=== PATIENT | female | born 1985 | race Two or more races ===

== ENCOUNTER → 2016-07-23 | Outpatient (CLI) | payer SELFPAY | LOC: RAD 12:53 | PROVIDERS: ATTEND Nurse Practitioner Women's Health | DX: Z34.83 Encounter for supervision of other normal pregnancy, third trimester (principal) | CPT/HCPCS: 76805 ==

== ENCOUNTER 2016-07-24 15:11 | Outpatient (CLI) | payer SELFPAY ==
--- NOTE | 2016-07-24 16:00 | L&D Flow Sheet ---
LD Flowsheet Datetime Report Generated by CPN: 07/24/2016 16:00 Datetime: 07/24/2016 15:48 Vital Signs NBP Sys/[place]/Mean (mmHg): 116 (QS system process) : 70 (QS system process) : 88 (QS system process) Pulse: 76 (QS system process) Temperature (F): 98.1 (Brianna Pimentel RN) Temperature (C): 36.7 (QS system process) Temperature Route: Oral (Brianna Pimentel RN) Communication Communication Comments: C. Kline, CNM reviewed strip. Monitors removed per order for reactive NST (Brianna Margarito, RN) Datetime: 07/24/2016 15:30 Vital Signs NBP Sys/[place]/Mean (mmHg): 127 (QS system process) : 75 (QS system process) : 96 (QS system process) Pulse: 79 (QS system process) Datetime: 07/24/2016 15:27 Communication Communication Comments: orders received for patient to be removed from monitors once NST reactive (Brianna Pimentel, RN)
--- NOTE | 2016-07-24 18:06 | Non Stress Test Report ---
Non Stress Test Datetime Report Generated by CPN: 07/24/2016 18:06 DEMOGRAPHIC EGA NST: 40.3 INDICATION Indication for Study: Ordered by Provider MONITORING Monitor Explained: Monitor Explained; Test Explained; Patient Verbalized Understanding Time on Monitor: 07/24/2016 15:26 Time off Monitor: 07/24/2016 15:49 NST Duration: 23 NST INTERVENTIONS NST Interventions: None Physician Notified NST: Dr. Gomez BABY A: [id number] BABY A Movement : Present Contraction Frequency : none FHR Baseline : 135 Accelerations : 15X15 Decelerations : None Variability : Moderate 6-25bpm NST Review: Meets Criteria for Reactive NST NST Review and Verified By : Valeria Diaz RN NST Results: Reactive NST REPORT Report Trigger: Send Report
== END 2016-07-24 17:15 | disposition home or self-care (01) ==
LOC: LC 15:11
PROVIDERS: ATTEND Obstetrics & Gynecology
PROC: 4A1HXCZ Monitoring of Products of Conception, Cardiac Rate, External Approach (ICD-10-PCS; principal; 2016-07-24)
DX: O48.0 Post-term pregnancy (principal); Z3A.40 40 weeks gestation of pregnancy
CPT/HCPCS: 59025

== ENCOUNTER 2016-07-26 17:28 | Outpatient (CLI) | payer SELFPAY ==
--- NOTE | 2016-07-26 19:21 | Non Stress Test Report ---
Non Stress Test Datetime Report Generated by CPN: 07/26/2016 19:21 DEMOGRAPHIC EGA NST: 40.5 INDICATION Indication for Study: Ordered by Provider Indication for Study (NST) Other: sent from the health department VITAL SIGNS Temperature - NST: 98.0 Pulse - NST: 90 RESP - NST: 16 NBPSYS NST: 131 NBPDIA NST: 68 MONITORING Monitor Explained: Monitor Explained; Test Explained; Patient Verbalized Understanding Time on Monitor: 07/26/2016 17:40 Time off Monitor: 07/26/2016 18:15 NST Duration: 35 NST INTERVENTIONS NST Interventions: PO Hydration; Reposition Patient Physician Notified NST: Dr Margarito BABY A Movement : Present Contraction Frequency : x1 FHR Baseline : 130 Accelerations : 15X15 Decelerations : None Variability : Moderate 6-25bpm NST Review: Meets Criteria for Reactive NST NST Review and Verified By : Norm Carcamo RN NST Results: Reactive NST REPORT Report Trigger: Send Report
== END 2016-07-26 19:25 | disposition home or self-care (01) ==
LOC: LC 17:28
PROVIDERS: ATTEND Obstetrics & Gynecology
PROC: 4A1HXCZ Monitoring of Products of Conception, Cardiac Rate, External Approach (ICD-10-PCS; principal; 2016-07-26)
DX: O48.0 Post-term pregnancy (principal); Z3A.40 40 weeks gestation of pregnancy
CPT/HCPCS: 59025

== ENCOUNTER 2016-07-29 11:10 | Inpatient (IN) | payer SELFPAY ==
--- NOTE | 2016-07-29 12:00 | L&D Flow Sheet ---
LD Flowsheet Datetime Report Generated by CPN: 07/29/2016 12:00 Datetime: 07/29/2016 11:49 Communication Comments: IT at bedside to assess MARTTI; IT to bring new device to pt bedside. Pt stable. (Cindy Vitrano, RN) Datetime: 07/29/2016 11:47 I/O Interventions: Clear Liquids Given (Cindy Vitrano, RN) Datetime: 07/29/2016 11:44 Communication Comments: IT requested to repair MARTTI (Cindy Vitrano, RN) Datetime: 07/29/2016 11:38 Patient Position/Activity: Left Tilt; Semi-Fowlers (Cindy Vitrano, RN)
[2016-07-29] MEDS ORDERED: OXYTOCIN/NORMAL SALINE 1,000 ML IV PRN (12:31)
[2016-07-29] MEDS ORDERED: RINGERS SOLUTION,LACTATED 1,000 ML IV PRN (12:31)
[2016-07-29 12:34] LABS: APPEARANCE,URINE CLOUDY; BILIRUBIN,URINE NEGATIVE (NEGATIVE); GLUCOSE, URINE NEGATIVE (NEGATIVE); KETONES,URINE NEGATIVE (NEGATIVE); LEUKOCYTE ESTERASE,URINE LARGE (NEGATIVE); NITRITE,URINE NEGATIVE (NEGATIVE); PROTEIN,URINE 30 mg/dL (NEGATIVE); URINE SPECIFIC GRAVITY 1.013; UROBILINOGEN,URINE NEGATIVE mg/dL (<2.0)
[2016-07-29] MEDS ORDERED: PENICILLIN G-K 5 MILLION UNIT VIAL ONE ×3 (12:47→19:49)
[2016-07-29] MEDS ORDERED: OXYTOCIN/NORMAL SALINE 20 UNIT/1,000 ML RTUINJ ONE (12:47)
[2016-07-29 12:57] LABS: URINE BARBITURATES SCREEN NEGATIVE; URINE METHADONE SCREEN NEGATIVE; URINE OPIATES LOW NEGATIVE; URINE PHENCYCLIDINE SCREEN NEGATIVE
[2016-07-29 13:02] LABS: ABSOLUTE LYMPHOCYTES (AUTO) 1.4 10^3/uL (0.5-4.7); ABSOLUTE MONOCYTES (AUTO) 0.6 10^3/uL (0.1-1.4); ABSOLUTE NEUT (AUTO) 4.4 10^3/uL (1.7-8.2); BASOPHILS % (AUTO) 0.2 % (0-2); EOSINOPHILS % (AUTO) 0.2 % (0-6); HEMATOCRIT 36.8 % (36.0-47.0); HEMOGLOBIN 12.1 g/dL (12.0-15.5); HGB HCT DIFFERENCE -0.5; LYMPHOCYTES % (AUTO) 21.7 % (13-45); MEAN CORPUSCULAR HEMOGLOBIN 27.1 pg (27.0-33.4); MEAN CORPUSCULAR VOLUME 82 fl (80-97); MONOCYTES % (AUTO) 9.1 % (3-13); RED BLOOD COUNT 4.47 10^6/uL (3.72-5.28); RED CELL DISTRIBUTION WIDTH 17.3 % (11.5-14.0); SEGMENTED NEUTROPHILS % (AUTO) 68.8 % (42-78); WHITE BLOOD COUNT 6.4 10^3/uL (4.0-10.5)
--- NOTE | 2016-07-29 13:56 | L&D Progress Notes ---
PROGRESS NOTES Datetime Report Generated by CPN: 07/29/2016 13:56 PROGRESS NOTE Impression Other: IOL- stable Procedures: Sterile Vag Exam Plan: Continue Present Management; Induction Informed Consent Obtained: Vaginal Delivery; Risks, Benefits and Alternatives Discussed Vital Signs : Reviewed; Within Normal Limits Comment: S: Pt. comfortable, denies any pain/cramping at this time. Unsure of medication of choice for pain control (Epidural vs IV) O: VSS, Cat I tracing, cervix as stated, pit @6mu/min A: IOL at [id number], GBS positive-received first dose of antibiotics for prophylaxis P: Continue IOL- Will AROM 3-4hr post first dose of PCN. Reassess earlier prn VAGINAL EXAM Dilatation: 5 Dilatation: 4 Effacement: 80 Effacement: 70 Station: -2 Station: -2 Contractions: irregular Contractions: irregular MEMBRANES Membranes: Intact Membranes: Intact FETUS A Monitoring: External US Decelerations: None FHR Category: Category I Estimated Weight (gm): 4200 Presentation: Vertex SIGNATURE SIGNATURE: [id number] SIGNATURE: [id number] SIGNATURE: [id number] Assignment: Maureen Mckeon MD Signature: with User ID: Vania : with User ID: Vania
--- NOTE | 2016-07-29 14:01 | L&D Flow Sheet ---
LD Flowsheet Datetime Report Generated by CPN: 07/29/2016 14:00 Datetime: 07/29/2016 13:58 NBP Sys/[place]/Mean (mmHg): 126 (QS system process) : 82 (QS system process) : 99 (QS system process) Pulse: 81 (QS system process) LaborFlag: Labor (QS system process) Datetime: 07/29/2016 13:45 Monitor Mode: External (Cindy Vitrano, RN) Frequency (min): Irregular (Cindy Vitrano, RN) Quality: Mild (Cindy Vitrano, RN) Duration (sec): 50-90 (Cindy Vitrano, RN) Duration Criteria: Less than Two 120 Second Contractions (Cindy Vitrano, RN) Pattern: Normal: <= 5 Contractions in 10 Minutes (Cindy Vitrano, RN) Resting Tone (Palpate): Relaxed (Cindy Vitrano, RN) Monitor Mode: External US (Cindy Vitrano, RN) FHR Baseline Rate : 145 (Cindy Vitrano, RN) Variability: Moderate 6-25 bpm (Cindy Vitrano, RN) Accelerations: 15X15 (Cindy Vitrano, RN) Decelerations: None (Cindy Vitrano, RN) Pitocin (milliunit): Pitocin Increased to (milliunits) @ 8 (Cindy Vitrano, RN) Datetime: 07/29/2016 13:30 Monitor Mode: External (Cindy Vitrano, RN) Frequency (min): Occasional (Cindy Vitrano, RN) Quality: Mild (Cindy Vitrano, RN) Duration (sec): 50-80 (Cindy Vitrano, RN) Duration Criteria: Less than Two 120 Second Contractions (Cindy Vitrano, RN) Pattern: Normal: <= 5 Contractions in 10 Minutes (Cindy Vitrano, RN) Resting Tone (Palpate): Relaxed (Cindy Vitrano, RN) Monitor Mode: External US (Cindy Vitrano, RN) FHR Baseline Rate : 140 (Cindy Vitrano, RN) Variability: Moderate 6-25 bpm (Cindy Vitrano, RN) Accelerations: 15X15 (Cindy Vitrano, RN) Decelerations: None (Cindy Vitrano, RN) Pitocin (milliunit): Pitocin Increased to (milliunits) @ 6 (Cindy Vitrano, RN) Patient Care Comments: Pt denies needs (Cindy Vitrano, RN) Datetime: 07/29/2016 13:26 NBP Sys/[place]/Mean (mmHg): 122 (QS system process) : 79 (QS system process) : 96 (QS system process) Pulse: 73 (QS system process) Respirations: 16 (Cindy Vitrano, RN) LaborFlag: Labor (QS system process) Datetime: 07/29/2016 13:15 Monitor Mode: External (Cindy Vitrano, RN) Frequency (min): Occasional (Cindy Vitrano, RN) Quality: Mild (Cindy Vitrano, RN) Duration (sec): 70-100 (Cindy Vitrano, RN) Duration Criteria: Less than Two 120 Second Contractions (Cindy Vitrano, RN) Pattern: Normal: <= 5 Contractions in 10 Minutes (Cindy Vitrano, RN) Resting Tone (Palpate): Relaxed (Cindy Vitrano, RN) Monitor Mode: External US (Cindy Vitrano, RN) FHR Baseline Rate : 140 (Cindy Vitrano, RN) Variability: Moderate 6-25 bpm (Cindy Vitrano, RN) Accelerations: 15X15 (Cindy Vitrano, RN) Decelerations: None (Cindy Vitrano, RN) Pitocin (milliunit): Pitocin Increased to (milliunits) @ 4 (Cindy Vitrano, RN) IV/Blood Work: IV Infusing per Order (Cindy Vitrano, RN) Patient Care Comments: 125 mL/hour (Cindy Vitrano, RN) Datetime: 07/29/2016 13:14 Monitor Interventions for FHR: Ultrasound Adjusted (Cindy Vitrano, RN) Datetime: 07/29/2016 13:00 Monitor Mode: External (Cindy Vitrano, RN) Frequency (min): Occasional (Cindy Vitrano, RN) Quality: Mild (Cindy Vitrano, RN) Duration (sec): 70-80 (Cindy Vitrano, RN) Duration Criteria: Less than Two 120 Second Contractions (Cindy Vitrano, RN) Pattern: Normal: <= 5 Contractions in 10 Minutes (Cindy Vitrano, RN) Resting Tone (Palpate): Relaxed (Cindy Vitrano, RN) Monitor Mode: External US (Cindy Vitrano, RN) FHR Baseline Rate : 140 (Cindy Vitrano, RN) Variability: Moderate 6-25 bpm (Cindy Vitrano, RN) Accelerations: 15X15 (Cindy Vitrano, RN) Decelerations: None (Cindy Vitrano, RN) Patient Care Comments: Pt stable, denies needs (Cindy Vitrano, RN) Datetime: 07/29/2016 12:57 NBP Sys/[place]/Mean (mmHg): 118 (QS system process) : 76 (QS system process) : 94 (QS system process) Pulse: 86 (QS system process) Respirations: 16 (Cindy Vitrano, RN) LaborFlag: Labor (QS system process) Datetime: 07/29/2016 12:56 Medication Comments: PCN 5 million units IVPB (Cindy Vitrano, RN) Datetime: 07/29/2016 12:55 Pitocin (milliunit): Pitocin Started (milliunits) @ 2; Pitocin 20 Units in 1000ml NS (Cindy Vitrano, RN) Communication Comments: Medication reviewed with MARTRAIN and Keira Kline, CNM; pt denies questions (Cindy Vitrano, RN) Datetime: 07/29/2016 12:42 IV/Blood Work: IV Started; IV Infusing per Order (Cindy Vitrano, RN) Patient Care Comments: 18 G R hand site WNL (Cindy Vitrano, RN) Datetime: 07/29/2016 12:33 Communication Comments: CEulalio Kline, CNM at bedside to assess pt and review POC in eritrean (Cindy Vitrano, RN) Datetime: 07/29/2016 12:31 Patient Care Comments: Labs drawn (Cindy Vitrano, RN) Datetime: 07/29/2016 12:30 Monitor Mode: External (Cindy Vitrano, RN) Frequency (min): Occasional (Cindy Vitrano, RN) Quality: Mild (Cindy Vitrano, RN) Duration (sec): 70-100 (Cindy Vitrano, RN) Duration Criteria: Less than Two 120 Second Contractions (Cindy Vitrano, RN) Pattern: Normal: <= 5 Contractions in 10 Minutes (Cindy Vitrano, RN) Resting Tone (Palpate): Relaxed (Cindy Vitrano, RN) Monitor Mode: External US (Cindy Vitrano, RN) FHR Baseline Rate : 140 (Cindy Vitrano, RN) Variability: Moderate 6-25 bpm (Cindy Vitrano, RN) Accelerations: 15X15 (Cindy Vitrano, RN) Decelerations: None (Cindy Vitrano, RN) Datetime: 07/29/2016 12:26 NBP Sys/[place]/Mean (mmHg): 129 (QS system process) : 87 (QS system process) : 103 (QS system process) Pulse: 83 (QS system process) Respirations: 16 (Cindy Vitrano, RN) LaborFlag: Labor (QS system process) Datetime: 07/29/2016 12:22 Instructional Method: Verbal; Written; Patient Instructed; Family/Support Person Instructed; Verbalized Understanding (Cindy Vitrano, RN) Teaching Comments: MARTTI used to review POC and answer pt questions (Cindy Vitrano, RN) Datetime: 07/29/2016 12:20 Stage of : Labor (Cindy Vitrano, RN) Pain Scale: 0 (Cindy Vitrano, RN) Pain Presence: None/Denies (Cindy Vitrano, RN) Pain Type: N/A (Cindy Vitrano, RN) Membrane Status: Intact (Cindy Vitrano, RN) Vaginal Bleeding: None (Cindy Vitrano, RN) Level of Consciousness: Fully Conscious (Cindy Vitrano, RN) DTR's/Clonus: DTRs 2+; No Clonus (Cindy Vitrano, RN) Headache: Denies (Cindy Vitrano, RN) Breath Sounds, Left: Clear and Equal (Cindy Vitrano, RN) Breath Sounds, Right: Clear and Equal (Cindy Vitrano, RN) Nausea/Vomiting: Denies (Cindy Vitrano, RN) RUQ Epigastric Pain: Denies (Cindy Vitrano, RN) LaborFlag: Labor (QS system process) Datetime: 07/29/2016 12:12 Patient Care Comments: Consents reviewed and signed with WILD (Cindy Vitrano, RN) Datetime: 07/29/2016 12:06 Patient Care Comments: History and General Admission completed using MARTTI (Cindy Vitrano, RN) Datetime: 07/29/2016 12:00 Monitor Mode: External; Palpation (Cindy Vitrano, RN) Frequency (min): Occasional (Cindy Vitrano, RN) Quality: Mild (Cindy Vitrano, RN) Duration (sec): 70-100 (Cindy Vitrano, RN) Duration Criteria: Less than Two 120 Second Contractions (Cindy Vitrano, RN) Pattern: Normal: <= 5 Contractions in 10 Minutes (Cindy Vitrano, RN) Resting Tone (Palpate): Relaxed (Cindy Vitrano, RN) Monitor Mode: External US (Cindy Vitrano, RN) FHR Baseline Rate : 145 (Cindy Vitrano, RN) Variability: Moderate 6-25 bpm (Cindy Vitrano, RN) Accelerations: 15X15 (Cindy Vitrano, RN) Decelerations: None (Cindy Vitrano, RN) Communication Comments: IT at bedside repairing MARTTI (Cindy Diaz, RN)
[2016-07-29] MEDS ORDERED: BUPIVACAINE HCL 0.25 % INJ/PF (2.5 MG/1 ML) 30 ML VIAL ONE (15:14)
[2016-07-29] MEDS ORDERED: FENTANYL/BUPIVACAINE/NS/PF 200 MCG/100 ML RTUINJ EPI ONE (15:14)
[2016-07-29] MEDS ORDERED: EPHEDRINE SULFATE INJ 50 MG/1 ML AMPULE ONE (15:14)
--- NOTE | 2016-07-29 16:01 | L&D Flow Sheet ---
LD Flowsheet Datetime Report Generated by CPN: 07/29/2016 16:00 Datetime: 07/29/2016 15:58 Patient Care Comments: Denies needs, resting with FOB at bedside (Cindy MYRA Diaz) Datetime: 07/29/2016 15:57 Temperature (F): 98.5 (Cindy MYRA Diaz) Temperature (C): 36.9 (QS system process) Temperature Route: Oral (Cindy Diaz RN) Patient Care Comments: IV infusing per order, 125 mL/hour (Cindy Diaz RN) LaborFlag: Labor (QS system process) Datetime: 07/29/2016 15:56 NBP Sys/[place]/Mean (mmHg): 121 (QS system process) : 58 (QS system process) : 84 (QS system process) Pulse: 68 (QS system process) Pain Presence: None/Denies (Cindy Diaz RN) Pain Type: N/A (Cindy Diaz RN) LaborFlag: Labor (QS system process) Datetime: 07/29/2016 15:55 NBP Sys/[place]/Mean (mmHg): 124 (QS system process) : 60 (QS system process) : 87 (QS system process) Pulse: 80 (QS system process) Dilatation (cm): 6.5 (Cindy Diaz RN) Effacement (%): 90 (Cindy Diaz RN) Station: -1 (Cindy Diaz RN) Exam by: Valeria Diaz RN (Cindy Diaz RN) Membrane Status: Bulging (Cindy Diaz RN) LaborFlag: Labor (QS system process) Datetime: 07/29/2016 15:54 NBP Sys/[place]/Mean (mmHg): 128 (QS system process) : 58 (QS system process) : 83 (QS system process) Pulse: 77 (QS system process) LaborFlag: Labor (QS system process) Datetime: 07/29/2016 15:53 NBP Sys/[place]/Mean (mmHg): 124 (QS system process) : 58 (QS system process) : 85 (QS system process) Pulse: 83 (QS system process) I/O Interventions: Thomson Cath Inserted (Cindy Diaz RN) Patient Care Comments: MARTTI used (Cindy Diaz RN) LaborFlag: Labor (QS system process) Datetime: 07/29/2016 15:52 NBP Sys/[place]/Mean (mmHg): 123 (QS system process) : 62 (QS system process) : 86 (QS system process) Pulse: 73 (QS system process) LaborFlag: Labor (QS system process) Datetime: 07/29/2016 15:51 NBP Sys/[place]/Mean (mmHg): 122 (QS system process) : 67 (QS system process) : 88 (QS system process) Pulse: 80 (QS system process) LaborFlag: Labor (QS system process) Datetime: 07/29/2016 15:50 NBP Sys/[place]/Mean (mmHg): 124 (QS system process) : 70 (QS system process) : 90 (QS system process) Pulse: 79 (QS system process) LaborFlag: Labor (QS system process) Datetime: 07/29/2016 15:49 NBP Sys/[place]/Mean (mmHg): 114 (QS system process) : 55 (QS system process) : 77 (QS system process) Pulse: 84 (QS system process) LaborFlag: Labor (QS system process) Datetime: 07/29/2016 15:48 NBP Sys/[place]/Mean (mmHg): 120 (QS system process) : 60 (QS system process) : 83 (QS system process) Pulse: 81 (QS system process) LaborFlag: Labor (QS system process) Datetime: 07/29/2016 15:47 NBP Sys/[place]/Mean (mmHg): 119 (QS system process) : 65 (QS system process) : 82 (QS system process) Pulse: 78 (QS system process) LaborFlag: Labor (QS system process) Datetime: 07/29/2016 15:46 NBP Sys/[place]/Mean (mmHg): 118 (QS system process) : 58 (QS system process) : 82 (QS system process) Pulse: 78 (QS system process) LaborFlag: Labor (QS system process) Datetime: 07/29/2016 15:45 NBP Sys/[place]/Mean (mmHg): 116 (QS system process) : 62 (QS system process) : 83 (QS system process) Pulse: 86 (QS system process) Anesthesia Plans: Epidural (Cindy Vitrano, RN) Epidural Procedure: Loading Dose (Cindy Vitrano, RN) LaborFlag: Labor (QS system process) Datetime: 07/29/2016 15:44 NBP Sys/[place]/Mean (mmHg): 127 (QS system process) : 74 (QS system process) : 95 (QS system process) Pulse: 85 (QS system process) LaborFlag: Labor (QS system process) Datetime: 07/29/2016 15:43 Anesthesia Plans: Epidural (Cindy Vitrano, RN) Epidural Procedure: Cath Placed (Cindy Vitrano, RN) Epidural Procedure: Test Dose (Cindy Vitrano, RN) Datetime: 07/29/2016 15:42 Pulse: 98 (QS system process) SpO2 (%): 100 (QS system process) LaborFlag: Labor (QS system process) Datetime: 07/29/2016 15:37 Pulse: 91 (QS system process) SpO2 (%): 100 (QS system process) LaborFlag: Labor (QS system process) Datetime: 07/29/2016 15:36 Procedure Verify: Correct Patient Identity; Correct Side and Site are Marked; Accurate Procedure Consent Form; Agreement on Procedure to be Done; Correct Patient Position; Relevant Images and Results are Properly Labeled and Displayed; Addressed Need to Administer Antibiotics or Fluids for Irrigation; Safety Precautions Based on Patient History or Medication Use (Cindy Diaz RN) Anesthesia Plans: Epidural (Cindy Diaz RN) Anesthesia Comments: Dr. Peres at bedside for epidural (Cindy Diaz RN) Communication Comments: MARTTI used to explain procedure, used throughout procedure, all pt questions answered (Cindy Diaz RN) Datetime: 07/29/2016 15:32 Procedure Verify: Correct Patient Identity; Correct Side and Site are Marked; Accurate Procedure Consent Form; Agreement on Procedure to be Done; Correct Patient Position; Relevant Images and Results are Properly Labeled and Displayed; Addressed Need to Administer Antibiotics or Fluids for Irrigation; Safety Precautions Based on Patient History or Medication Use (Cindy Diaz RN) Anesthesia Plans: Epidural (Cindy Diaz RN) Anesthesia Comments: Dr. Peres called for epidural (Cindy Vitrano, RN) Datetime: 07/29/2016 15:25 Anesthesia Plans: Epidural (Cindy Vitrano, RN) Epidural Positioning: Sitting (Cindy Vitrano, RN) Datetime: 07/29/2016 15:15 IV/Blood Work: New IV Bag Hung; IV Bag Number @ 2 (Cindy Diaz RN) Patient Care Comments: LR bolusing for epidural (Cindy Diaz RN) Datetime: 07/29/2016 15:10 Pain Coping: Requesting Pain Medication or Epidural (Cindy Diaz RN) Pain Assessment Comments: Requesting epidural; orders from Keira Kline CNM for epidural PRN (Cindy Diaz RN) Procedure Verify: Correct Patient Identity; Correct Side and Site are Marked; Accurate Procedure Consent Form; Agreement on Procedure to be Done; Relevant Images and Results are Properly Labeled and Displayed; Addressed Need to Administer Antibiotics or Fluids for Irrigation; Safety Precautions Based on Patient History or Medication Use (Cindy Diaz RN) Anesthesia Plans: Epidural (Cindy Diaz RN) LaborFlag: Labor (QS system process) Datetime: 07/29/2016 15:00 Pitocin (milliunit): Pitocin Increased to (milliunits) @ 16 (Cindy Diaz RN) Datetime: 07/29/2016 14:57 NBP Sys/[place]/Mean (mmHg): 136 (QS system process) : 77 (QS system process) : 100 (QS system process) Pulse: 85 (QS system process) LaborFlag: Labor (QS system process) Datetime: 07/29/2016 14:45 Monitor Mode: External (Cindy Vitrano, RN) Frequency (min): 2-4 (Cindy Vitrano, RN) Quality: Mild (Cindy Vitrano, RN) Duration (sec): 50-90 (Cindy Vitrano, RN) Duration Criteria: Less than Two 120 Second Contractions (Cindy Vitrano, RN) Pattern: Normal: <= 5 Contractions in 10 Minutes (Cindy Vitrano, RN) Resting Tone (Palpate): Relaxed (Cindy Vitrano, RN) Monitor Mode: External US (Cindy Vitrano, RN) FHR Baseline Rate : 140 (Cindy Vitrano, RN) Variability: Moderate 6-25 bpm (Cindy Vitrano, RN) Accelerations: 15X15 (Cindy Vitrano, RN) Decelerations: None (Cindykhloe Diaz, RN) Pain Presence: Intermittent (Cindykhloe Diaz, RN) Pain Type: Cramping (Cindy Diaz RN) Pain Assessment Comments: Reports mild cramping, denies needs at this time (Cindy Diaz RN) Pitocin (milliunit): Pitocin Increased to (milliunits) @ 14 (Cindy Diaz, RN) Comfort Measures: Rocking Chair; Family Support (Cindy Diaz RN) LaborFlag: Labor (QS system process) Datetime: 07/29/2016 14:30 Monitor Mode: External (Cindy Diaz, RN) Frequency (min): 2-4 (Cindy Diaz, RN) Quality: Mild (Cindy Radhaano, RN) Duration (sec): 50-70 (Cindy Joe, RN) Duration Criteria: Less than Two 120 Second Contractions (Cindy Joe, RN) Pattern: Normal: <= 5 Contractions in 10 Minutes (Cindy Radhaano, RN) Resting Tone (Palpate): Relaxed (Cindy Joe, RN) Monitor Mode: External US (Cindy Joe, RN) FHR Baseline Rate : 135 (Cindy Vitrano, RN) Variability: Moderate 6-25 bpm (Cindy Vitrano, RN) Accelerations: None (Cindy Vitrano, RN) Decelerations: None (Cindy Vitrano, RN) Pitocin (milliunit): Pitocin Increased to (milliunits) @ 12 (Cindykhloe Diaz, RN) Datetime: 07/29/2016 14:26 NBP Sys/[place]/Mean (mmHg): 130 (QS system process) : 79 (QS system process) : 100 (QS system process) Pulse: 76 (QS system process) Respirations: 16 (Cindy Vitrano, RN) LaborFlag: Labor (QS system process) Datetime: 07/29/2016 14:20 Patient Care Comments: Up to rocking chair. Denies needs or complaints at this time. (Cindy Vitrano, RN) Datetime: 07/29/2016 14:15 Monitor Mode: External (Cindy Vitrano, RN) Frequency (min): 1.5-4 (Cindy Vitrano, RN) Quality: Mild (Cindy Vitrano, RN) Duration (sec): 50-90 (Cindy Vitrano, RN) Duration Criteria: Less than Two 120 Second Contractions (Cindy Vitrano, RN) Pattern: Normal: <= 5 Contractions in 10 Minutes (Cindy Vitrano, RN) Resting Tone (Palpate): Relaxed (Cindy Vitrano, RN) Monitor Mode: External US (Cindy Vitrano, RN) FHR Baseline Rate : 140 (Cindy Vitrano, RN) Variability: Moderate 6-25 bpm (Cindy Vitrano, RN) Accelerations: 15X15 (Cindy Vitrano, RN) Decelerations: None (Cindy Vitrano, RN) Pitocin (milliunit): Pitocin Increased to (milliunits) @ 10 (Cindy Vitrano, RN) Datetime: 07/29/2016 14:14 I/O Interventions: Up to BR (Cindy Vitrano, RN) Datetime: 07/29/2016 14:00 Monitor Mode: External; Palpation (Cindykhloe Diaz, RN) Frequency (min): 2-6 (Cindykhloe Diaz, RN) Quality: Mild (Cindy Joe, RN) Duration (sec): 50-80 (Cindy Joe, RN) Duration Criteria: Less than Two 120 Second Contractions (Cindy Joe, RN) Pattern: Normal: <= 5 Contractions in 10 Minutes (Cindy Joe, RN) Resting Tone (Palpate): Relaxed (Cindykhloe Diaz, RN) Monitor Mode: External US (Cindy Diaz, RN) FHR Baseline Rate : 140 (Cindy Joe, RN) Variability: Moderate 6-25 bpm (Cindy Joe, RN) Accelerations: 15X15 (Cindy Joe, RN) Decelerations: None (Cindy Joe, RN) Pitocin (milliunit): Pitocin Remains (milliunits) @ 8 (Cindy Diaz, RN)
[2016-07-29] MEDS ORDERED: LIDOCAINE 1% INJ-PF (10 MG/ML) 30 ML SDV ONE (16:25)
[2016-07-29] MEDS ORDERED: MISOPROSTOL 0.2 MG TABLET ONE (16:25)
--- NOTE | 2016-07-29 16:38 | L&D Progress Notes ---
PROGRESS NOTES Datetime Report Generated by CPN: 07/29/2016 16:38 PROGRESS NOTE Impression Other: IOL-stable Procedures- Other: rounds Plan: Continue Present Management Informed Consent Obtained: Vaginal Delivery; Risks, Benefits and Alternatives Discussed Vital Signs : Reviewed; Within Normal Limits Comment: S: pt. completely comfortable with epidural placement O: VSS, cervix as stated per RN exam, pit @ 18mu/min A: IOL-progressing SROM-clear fluid on inspection P: continue IOL, anticipate VAGINAL EXAM Dilatation: 7 Effacement: 90 Station: -1 Contractions: 1.5-3.5 MEMBRANES Membranes: Ruptured FETUS A Monitoring: External US Decelerations: Early FHR Category: Category I FETUS C SIGNATURE: [id number] Assignment: Maureen Mckeon MD Signature: with User ID: [email or web address] : with User ID: [email or web address]
--- NOTE | 2016-07-29 17:46 | L&D Progress Notes ---
PROGRESS NOTES Datetime Report Generated by CPN: 07/29/2016 17:46 PROGRESS NOTE Impression Other: IOL-stable, progressing well Procedures: Artificial ROM; Sterile Vag Exam Plan: Continue Present Management Informed Consent Obtained: Vaginal Delivery; Risks, Benefits and Alternatives Discussed Vital Signs : Reviewed; Within Normal Limits Comment: S: feeling intermittent perineal pressure O: VSS, pit @ 18mu/min, cervix as stated A: IOL stable, AROM-forebag ruptured large amount of white amniotic fluid present P: will labor down x30min in high fowlers, then start pushing VAGINAL EXAM Dilatation: 10 Effacement: 100 Station: 0 Contractions: 2-3 MEMBRANES Membranes: Ruptured Amniotic Fluid Color: white FETUS A FHR - Baseline: 130 Monitoring: External US Accelerations: 15X15 FETUS C SIGNATURE: [id number] Assignment: Maureen Mckeon MD Signature: with User ID: [email or web address] : with User ID: Vania
--- NOTE | 2016-07-29 18:01 | L&D Flow Sheet ---
LD Flowsheet Datetime Report Generated by CPN: 07/29/2016 18:00 Datetime: 07/29/2016 17:45 Monitor Mode: External; Palpation (Cindy Vitrano, RN) Frequency (min): 2-3 (Cindy Vitrano, RN) Quality: Moderate to Strong (Cindy Vitrano, RN) Duration (sec): 50-70 (Cindy Vitrano, RN) Duration Criteria: Less than Two 120 Second Contractions (Cindy Vitrano, RN) Pattern: Normal: <= 5 Contractions in 10 Minutes (Cindy Vitrano, RN) Resting Tone (Palpate): Relaxed (Cindy Vitrano, RN) Monitor Mode: External US (Cindy Vitrano, RN) FHR Baseline Rate : 125 (Cindy Vitrano, RN) Variability: Minimal - Undetectable to <=5 bpm (Cindy Vitrano, RN) Accelerations: 15X15 (Cindy Vitrano, RN) Decelerations: Early (Cindy Vitrano, RN) Pitocin (milliunit): Pitocin Remains (milliunits) @ 18 (Cindy Vitrano, RN) Datetime: 07/29/2016 17:43 NBP Sys/[place]/Mean (mmHg): 137 (QS system process) : 90 (QS system process) : 104 (QS system process) Pulse: 77 (QS system process) Respirations: 16 (Cindy Vitrano, RN) LaborFlag: Labor (QS system process) Datetime: 07/29/2016 17:37 Monitor Interventions for FHR: Ultrasound Adjusted (Cindy Vitrano, RN) Patient Position/Activity: Right Tilt; Tailors (Cindy Vitrano, RN) Stage 2 Comments: Laboring down (Cindy Vitrano, RN) Datetime: 07/29/2016 17:36 Dilatation (cm): 10.0 (Cindy Vitrano, RN) Effacement (%): 100 (Cindy Vitrano, RN) Station: 0 (Cindy Vitrano, RN) Exam by: Keira Kline CNM (Cindy Vitrano, RN) Membrane Status: Ruptured (Cindy Vitrano, RN) Membranes Rupture Method: Artificial (Cindy Vitrano, RN) Amniotic Fluid Color: Clear (Cindy Vitrano, RN) Amniotic Fluid Amount: Large (Cindy Vitrano, RN) Membrane Comments: Forebag ruptured (Cindy Vitrano, RN) Datetime: 07/29/2016 17:34 Provider Reviewed Strip: Yes (Cindy Vitrano, RN) Communication: RN at Bedside; RN Reviewed Strip; Provider at Bedside (Cindy Vitrano, RN) Communication Comments: Keira Kline CNM at bedside to assess pt (Cindy Vitrano, RN) Datetime: 07/29/2016 17:30 Monitor Mode: External (Cindy Vitrano, RN) Monitor Interventions for UA: [place] Adjusted (Cindy Vitrano, RN) Frequency (min): 1-2 (Cindy Vitrano, RN) Quality: Moderate to Strong (Cindy Vitrano, RN) Duration (sec): 50-80 (Cindy Vitrano, RN) Duration Criteria: Less than Two 120 Second Contractions (Cindy Vitrano, RN) Pattern: Normal: <= 5 Contractions in 10 Minutes (Cindy Vitrano, RN) Resting Tone (Palpate): Relaxed (Cindy Vitrano, RN) Monitor Mode: External US (Cindy Vitrano, RN) FHR Baseline Rate : 120 (Cindy Vitrano, RN) Variability: Absent - Undetectable (Cindy Vitrano, RN) Accelerations: 15X15 (Cindy Vitrano, RN) Decelerations: None (Cindy Vitrano, RN) Pitocin (milliunit): Pitocin Remains (milliunits) @ 18 (Cindy Vitrano, RN) Datetime: 07/29/2016 17:27 NBP Sys/[place]/Mean (mmHg): 118 (QS system process) : 65 (QS system process) : 86 (QS system process) Pulse: 73 (QS system process) Respirations: 16 (Cindy Vitrano, RN) LaborFlag: Labor (QS system process) Datetime: 07/29/2016 17:21 Monitor Interventions for UA: [place] Adjusted (Cindy Vitrano, RN) Patient Care Comments: Pt denies needs, resting comfortably with FOB at bedside (Cindy Vitrano, RN) Datetime: 07/29/2016 17:18 Monitor Interventions for UA: [place] Adjusted (Cindy Vitrano, RN) Monitor Interventions for FHR: Ultrasound Adjusted (Cindy Vitrano, RN) Patient Position/Activity: Right Lateral; Peanut Ball (Cindy Vitrano, RN) Datetime: 07/29/2016 17:15 Monitor Mode: External (Cindy Vitrano, RN) Frequency (min): 1-3 (Cindy Vitrano, RN) Quality: Moderate to Strong (Cindy Vitrano, RN) Duration (sec): 50-80 (Cindy Vitrano, RN) Duration Criteria: Less than Two 120 Second Contractions (Cindy Vitrano, RN) Pattern: Normal: <= 5 Contractions in 10 Minutes (Cindy Vitrano, RN) Resting Tone (Palpate): Relaxed (Cindy Vitrano, RN) Monitor Mode: External US (Cindy Vitrano, RN) FHR Baseline Rate : 130 (Cindy Vitrano, RN) Variability: Moderate 6-25 bpm (Cindy Vitrano, RN) Accelerations: 15X15 (Cindy Vitrano, RN) Decelerations: None (Cindy Vitrano, RN) Pitocin (milliunit): Pitocin Remains (milliunits) @ 18 (Cindy Vitrano, RN) Datetime: 07/29/2016 17:14 NBP Sys/[place]/Mean (mmHg): 124 (QS system process) : 76 (QS system process) : 95 (QS system process) Pulse: 73 (QS system process) Respirations: 16 (Cindy Vitrano, RN) LaborFlag: Labor (QS system process) Datetime: 07/29/2016 17:00 Monitor Mode: External; Palpation (Cindy Vitrano, RN) Frequency (min): 1-2 (Cindy Vitrano, RN) Quality: Moderate to Strong (Cindy Vitrano, RN) Duration (sec): 50-70 (Cindy Vitrano, RN) Duration Criteria: Less than Two 120 Second Contractions (Cindy Vitrano, RN) Pattern: Normal: <= 5 Contractions in 10 Minutes (Cindy Vitrano, RN) Resting Tone (Palpate): Relaxed (Cindy Vitrano, RN) Monitor Mode: External US (Cindy Vitrano, RN) FHR Baseline Rate : 130 (Cindy Vitrano, RN) Variability: Moderate 6-25 bpm (Cindy Vitrano, RN) Accelerations: 15X15 (Cindy Vitrano, RN) Decelerations: None (Cindy Vitrano, RN) Pitocin (milliunit): Pitocin Remains (milliunits) @ 18 (Cindy Vitrano, RN) Datetime: 07/29/2016 16:58 NBP Sys/[place]/Mean (mmHg): 123 (QS system process) : 67 (QS system process) : 90 (QS system process) Pulse: 63 (QS system process) Respirations: 16 (Cindy Vitrano, RN) LaborFlag: Labor (QS system process) Datetime: 07/29/2016 16:45 Monitor Mode: External (Cindy Vitrano, RN) Frequency (min): 1.5-2 (Cindy Vitrano, RN) Quality: Moderate to Strong (Cindy Vitrano, RN) Duration (sec): 50-70 (Cindy Vitrano, RN) Duration Criteria: Less than Two 120 Second Contractions (Cindy Vitrano, RN) Pattern: Normal: <= 5 Contractions in 10 Minutes (Cindy Vitrano, RN) Resting Tone (Palpate): Relaxed (Cindy Vitrano, RN) Monitor Mode: External US (Cindy Vitrano, RN) FHR Baseline Rate : 130 (Cindy Vitrano, RN) Variability: Minimal - Undetectable to <=5 bpm (Cindy Vitrano, RN) Accelerations: 15X15 (Cindy Vitrano, RN) Decelerations: None (Cindy Vitrano, RN) Pitocin (milliunit): Pitocin Remains (milliunits) @ 18 (Cindy Vitrano, RN) Datetime: 07/29/2016 16:42 NBP Sys/[place]/Mean (mmHg): 128 (QS system process) : 75 (QS system process) : 96 (QS system process) Pulse: 68 (QS system process) Respirations: 16 (Cindy Vitrano, RN) LaborFlag: Labor (QS system process) Datetime: 07/29/2016 16:36 Patient Position/Activity: Left Tilt; Tailors (Cindy Vitrano, RN) Datetime: 07/29/2016 16:30 Monitor Mode: External (Cindy Vitrano, RN) Frequency (min): 1-3 (Cindy Vitrano, RN) Quality: Moderate to Strong (Cindy Vitrano, RN) Duration (sec): 50-90 (Cindy Vitrano, RN) Duration Criteria: Less than Two 120 Second Contractions (Cindy Vitrano, RN) Pattern: Normal: <= 5 Contractions in 10 Minutes (Cindy Vitrano, RN) Resting Tone (Palpate): Relaxed (Cindy Vitrano, RN) Monitor Mode: External US (Cindy Vitrano, RN) FHR Baseline Rate : 135 (Cindy Vitrano, RN) Variability: Minimal - Undetectable to <=5 bpm (Cindy Vitrano, RN) Accelerations: 15X15 (Cindy Vitrano, RN) Decelerations: Early; Variable (Cindy Vitrano, RN) Pitocin (milliunit): Pitocin Remains (milliunits) @ 18 (Cindy Vitrano, RN) Datetime: 07/29/2016 16:28 Medication Comments: PCN 2.5 million units IVPB (Cindy Vitrano, RN) Datetime: 07/29/2016 16:27 NBP Sys/[place]/Mean (mmHg): 122 (QS system process) : 64 (QS system process) : 88 (QS system process) Pulse: 62 (QS system process) Respirations: 16 (Cindy Vitrano, RN) LaborFlag: Labor (QS system process) Datetime: 07/29/2016 16:15 Monitor Mode: External (Cindy Vitrano, RN) Frequency (min): 1.5-3.5 (Cindy Vitrano, RN) Quality: Moderate to Strong (Cindy Vitrano, RN) Duration (sec): 50-80 (Cindy Vitrano, RN) Duration Criteria: Less than Two 120 Second Contractions (Cindy Vitrano, RN) Pattern: Normal: <= 5 Contractions in 10 Minutes (Cindy Vitrano, RN) Resting Tone (Palpate): Relaxed (Cindy Vitrano, RN) Monitor Mode: External US (Cindy Vitrano, RN) FHR Baseline Rate : 140 (Cindy Vitrano, RN) Variability: Moderate 6-25 bpm (Cindy Vitrano, RN) Accelerations: 15X15 (Cindy Vitrano, RN) Decelerations: Early (Cindy Vitrano, RN) Pitocin (milliunit): Pitocin Increased to (milliunits) @ 18 (Cindy Vitrano, RN) Datetime: 07/29/2016 16:12 NBP Sys/[place]/Mean (mmHg): 126 (QS system process) : 69 (QS system process) : 92 (QS system process) Pulse: 70 (QS system process) Respirations: 16 (Cindy Vitrano, RN) Communication Comments: Keira Kline CNM at bedside, aware of SROM and SVE. Pt denies needs or questions at this time. (Cindy Vitrano, RN) LaborFlag: Labor (QS system process) Datetime: 07/29/2016 16:11 Hygiene: Underpad Changed (Cindy Vitrano, RN) Datetime: 07/29/2016 16:10 Membrane Status: Ruptured (Cindy Vitrano, RN) Membranes Rupture Method: Spontaneous (Cindy Vitrano, RN) Amniotic Fluid Color: Clear (Cindy Vitrano, RN) Amniotic Fluid Amount: Moderate (Cindy Vitrano, RN) Datetime: 07/29/2016 16:00 Monitor Mode: External; Palpation (Cindy Diaz, RN) Frequency (min): 2-4 (Cindykhloe Diaz, RN) Quality: Moderate to Strong (Cindy Joe, RN) Duration (sec): 50-80 (Cindy Joe, RN) Duration Criteria: Less than Two 120 Second Contractions (Cindy Joe, RN) Pattern: Normal: <= 5 Contractions in 10 Minutes (Cindy Joe, RN) Resting Tone (Palpate): Relaxed (Cindy Joe, RN) Monitor Mode: External US (Cindy Diaz, RN) FHR Baseline Rate : 145 (Cindy Joe, RN) Variability: Moderate 6-25 bpm (Cindy Joe, RN) Accelerations: 15X15 (Cindy Joe, RN) Decelerations: None (Cindy Joe, RN) Pitocin (milliunit): Pitocin Remains (milliunits) @ 16 (Cindykhloe Diaz, RN)
--- NOTE | 2016-07-29 20:01 | L&D Flow Sheet ---
LD Flowsheet Datetime Report Generated by CPN: 07/29/2016 20:00 Datetime: 07/29/2016 19:56 Medication Comments: PCN 2.5 million units IVPB (Cindy Vitrano, RN) IV/Blood Work: New IV Bag Hung; IV Bag Number @ 3 (Cindy Vitrano, RN) Pushing: Urge to Push (Cindy Vitrano, RN) Datetime: 07/29/2016 19:45 Monitor Mode: External (Cindy Vitrano, RN) Frequency (min): 2-3 (Cindy Vitrano, RN) Quality: Moderate to Strong (Cindy Vitrano, RN) Duration (sec): 50-80 (Cindy Vitrano, RN) Duration Criteria: Less than Two 120 Second Contractions (Cindy Vitrano, RN) Pattern: Normal: <= 5 Contractions in 10 Minutes (Cindy Vitrano, RN) Resting Tone (Palpate): Relaxed (Cindy Vitrano, RN) Monitor Mode: External US (Cindy Vitrano, RN) FHR Baseline Rate : 145 (Cindy Vitrano, RN) Variability: Minimal - Undetectable to <=5 bpm (Cindy Vitrano, RN) Accelerations: 15X15 (Cindy Vitrano, RN) Decelerations: None (Cindy Vitrano, RN) Pitocin (milliunit): Pitocin Remains (milliunits) @ 18 (Cindy Vitrano, RN) Datetime: 07/29/2016 19:40 NBP Sys/[place]/Mean (mmHg): 122 (QS system process) : 82 (QS system process) : 97 (QS system process) Pulse: 97 (QS system process) Respirations: 16 (Cindy Vitrano, RN) Monitor Interventions for FHR: Ultrasound Adjusted (Cindy Vitrano, RN) LaborFlag: Labor (QS system process) Datetime: 07/29/2016 19:30 Monitor Mode: External (Cindy Vitrano, RN) Frequency (min): 1.5-2 (Cindy Vitrano, RN) Quality: Moderate to Strong (Cindy Vitrano, RN) Duration (sec): 50-100 (Cindy Vitrano, RN) Duration Criteria: Less than Two 120 Second Contractions (Cindy Vitrano, RN) Pattern: Normal: <= 5 Contractions in 10 Minutes (Cindy Vitrano, RN) Resting Tone (Palpate): Relaxed (Cindy Vitrano, RN) Monitor Mode: External US (Cindy Vitrano, RN) FHR Baseline Rate : 145 (Cindy Vitrano, RN) Variability: Moderate 6-25 bpm (Cindy Vitrano, RN) Accelerations: 10X10 (Cindy Vitrano, RN) Decelerations: Early; Variable (Cindy Vitrano, RN) Pitocin (milliunit): Pitocin Remains (milliunits) @ 18 (Cindy Vitrano, RN) Datetime: 07/29/2016 19:15 Monitor Mode: External (Cindy Vitrano, RN) Frequency (min): 1.5-3 (Cindy Vitrano, RN) Quality: Moderate to Strong (Cindy Vitrano, RN) Duration (sec): 60-100 (Cindy Vitrano, RN) Duration Criteria: Less than Two 120 Second Contractions (Cindy Vitrano, RN) Pattern: Normal: <= 5 Contractions in 10 Minutes (Cindy Vitrano, RN) Resting Tone (Palpate): Relaxed (Cindy Vitrano, RN) Monitor Mode: External US (Cindy Vitrano, RN) FHR Baseline Rate : 140 (Cindy Vitrano, RN) Variability: Moderate 6-25 bpm (Cindy Vitrano, RN) Accelerations: 15X15 (Cindy Vitrano, RN) Decelerations: None (Cindy Vitrano, RN) Pitocin (milliunit): Pitocin Remains (milliunits) @ 18 (Cindy Vitrano, RN) Datetime: 07/29/2016 19:09 NBP Sys/[place]/Mean (mmHg): 129 (QS system process) : 80 (QS system process) : 98 (QS system process) Pulse: 97 (QS system process) Respirations: 16 (Cindy Vitrano, RN) LaborFlag: Labor (QS system process) Datetime: 07/29/2016 19:07 Patient Position/Activity: Right Tilt; Tailors (Cindy Vitrano, RN) Datetime: 07/29/2016 19:06 Communication Comments: Pt to labor down with epidural pump off until sensation to push increases. KAYLA EliseM at bedside reviewing POC with pt and all pt questions answered. (Cindy Vitrano, RN) Datetime: 07/29/2016 19:02 Pushing Progress: Ineffective Pushing (Annotations: No descent, ineffective pushing) (Cindy Vitrano, RN) Communication Comments: Dr. Mckeon at bedside to assess pt (Cindy Vitrano, RN) Datetime: 07/29/2016 19:00 Monitor Mode: External (Cindy Vitrano, RN) Frequency (min): 1.5-3 (Cindy Vitrano, RN) Quality: Moderate to Strong (Cindy Vitrano, RN) Duration (sec): 50-80 (Cindy Vitrano, RN) Duration Criteria: Less than Two 120 Second Contractions (Cindy Vitrano, RN) Pattern: Normal: <= 5 Contractions in 10 Minutes (Cindy Vitrano, RN) Resting Tone (Palpate): Relaxed (Cindy Vitrano, RN) Monitor Mode: External US (Cindy Vitrano, RN) FHR Baseline Rate : 130 (Cindy Vitrano, RN) Variability: Minimal - Undetectable to <=5 bpm (Cindy Vitrano, RN) Accelerations: None (Cindy Vitrano, RN) Decelerations: Early; Variable (Cindy Vitrano, RN) Pitocin (milliunit): Pitocin Remains (milliunits) @ 18 (Cindy Vitrano, RN) Datetime: 07/29/2016 18:45 Monitor Mode: External (Cindy Vitrano, RN) Frequency (min): 2-3 (Cindy Vitrano, RN) Quality: Moderate to Strong (Cinyd Vitrano, RN) Duration (sec): 50-90 (Cindy Vitrano, RN) Duration Criteria: Less than Two 120 Second Contractions (Cindy Vitrano, RN) Pattern: Normal: <= 5 Contractions in 10 Minutes (Cindy Vitrano, RN) Resting Tone (Palpate): Relaxed (Cindy Vitrano, RN) Monitor Mode: External US (Cindy Vitrano, RN) FHR Baseline Rate : 120 (Cindy Vitrano, RN) Variability: Moderate 6-25 bpm (Cindy Vitrano, RN) Accelerations: 15X15 (Cindy Vitrano, RN) Decelerations: None (Cindy Vitrano, RN) Pitocin (milliunit): Pitocin Remains (milliunits) @ 18 (Cindy Vitrano, RN) Datetime: 07/29/2016 18:43 Stage 2 Comments: Pushing with squat bar (Cindy Vitrano, RN) Datetime: 07/29/2016 18:41 Anesthesia Comments: Epidural pump off per Keira Kline CNM (Cindy Vitrano, RN) Datetime: 07/29/2016 18:36 Pushing Position: Pushing Left Side (Cindy Vitrano, RN) Datetime: 07/29/2016 18:30 Monitor Mode: External (Cindy Vitrano, RN) Frequency (min): 2-4 (Cindy Vitrano, RN) Quality: Moderate to Strong (Cindy Vitrano, RN) Duration (sec): 60-100 (Cindy Vitrano, RN) Duration Criteria: Less than Two 120 Second Contractions (Cindy Vitrano, RN) Pattern: Normal: <= 5 Contractions in 10 Minutes (Cindy Vitrano, RN) Resting Tone (Palpate): Relaxed (Cindy Vitrano, RN) Monitor Mode: External US (Cindy Vitrano, RN) Variability: Moderate 6-25 bpm (Cindy Vitrano, RN) Comments: Indeterminate baseline/accel/decel d/t maternal movement while pushing and pt habitus. RN at bedside continuously adjusting US. (Cindy Vitrano, RN) Pitocin (milliunit): Pitocin Remains (milliunits) @ 18 (Cindy Vitrano, RN) Datetime: 07/29/2016 18:24 Patient Position/Activity: Left Tilt (Cindy Vitrano, RN) Datetime: 07/29/2016 18:21 Stage 2 Comments: Tug of war (Cindy Vitrano, RN) Datetime: 07/29/2016 18:19 I/O Interventions: Thomson Discontinued (Cindy Vitrano, RN) Datetime: 07/29/2016 18:18 Pushing Progress: Descent with Pushing (Cindy Vitrano, RN) Datetime: 07/29/2016 18:15 Monitor Mode: External; Palpation (Cindy Vitrano, RN) Frequency (min): 2-4 (Cindy Vitrano, RN) Quality: Moderate to Strong (Cindy Vitrano, RN) Duration (sec): 50-90 (Cindy Vitrano, RN) Duration Criteria: Less than Two 120 Second Contractions (Cindy Vitrano, RN) Pattern: Normal: <= 5 Contractions in 10 Minutes (Cindy Vitrano, RN) Resting Tone (Palpate): Relaxed (Cindy Vitrano, RN) Monitor Mode: External US (Cindy Vitrano, RN) FHR Baseline Rate : 130 (Cindy Vitrano, RN) Variability: Moderate 6-25 bpm (Cindy Vitrano, RN) Accelerations: 15X15 (Cindy Vitrano, RN) Decelerations: None (Cindy Vitrano, RN) Pitocin (milliunit): Pitocin Remains (milliunits) @ 18 (Cindy Vitrano, RN) Datetime: 07/29/2016 18:12 Communication Comments: C. Kline, CNM to motor coach chauffeur pt on pushing (Cindy Vitrano, RN) Datetime: 07/29/2016 18:11 Temperature (F): 98.4 (Cindy Vitrano, RN) Temperature (C): 36.9 (QS system process) LaborFlag: Labor (QS system process) Datetime: 07/29/2016 18:09 Comments: RN remainst at bedside while pt pushes continuosly adjusting US and assessing FHTs (Cindy Vitrano, RN) Pushing: Coached on Pushing; Urge to Push (Cindy Vitrano, RN) Pushing Position: Pushing Lithotomy (Cindy Vitrano, RN) Datetime: 07/29/2016 18:00 Monitor Mode: External; Palpation (Cindy Diaz, MYRA) Frequency (min): 2-4 (Cindy Diaz, MYRA) Quality: Moderate to Strong (Cindy Diaz, RN) Duration (sec): 50-90 (Cindy Diaz, RN) Duration Criteria: Less than Two 120 Second Contractions (Cindy Diaz, RN) Pattern: Normal: <= 5 Contractions in 10 Minutes (Cindy Diaz, RN) Resting Tone (Palpate): Relaxed (Cindy Diaz, RN) Monitor Mode: External US (Cindy Diaz, RN) FHR Baseline Rate : 130 (Cindy Diaz, RN) Variability: Minimal - Undetectable to <=5 bpm (Cindy Diaz, RN) Accelerations: None (Cindy Diaz, RN) Decelerations: None (Cindy Diaz, RN) Pitocin (milliunit): Pitocin Remains (milliunits) @ 18 (Cindy Diaz, MYRA) Communication Comments: Pt to begin pushing per CNM; RN at bedside using MARTTI to explain POC and motor coach chauffeur pushing (Cindy Diaz RN)
[2016-07-29] MEDS ORDERED: FENTANYL CITRATE INJ/PF 100 MCG/2 ML AMPUL ONE (20:47)
[2016-07-29] MEDS ORDERED: OXYTOCIN 10 UNIT/ML VIAL ONE (20:56)
[2016-07-29] MEDS ORDERED: NALBUPHINE HCL INJ 10 MG/1 ML AMPULE ONE (20:57)
[2016-07-29] MEDS ORDERED: NALBUPHINE HCL INJ 10 MG/1 ML AMPULE INJ ONE (21:05)
[2016-07-29] MEDS ORDERED: FENTANYL CITRATE INJ/PF 100 MCG/2 ML AMPUL IV ONE (21:05)
[2016-07-29] MEDS ORDERED: CEFAZOLIN 2 GM/D5W RTU 50 ML IV SCH (21:15)
[2016-07-29] MEDS ORDERED: CEFAZOLIN 2 GM/D5W RTU 2 GM/50 ML RTUPB IV ONE ×2 (21:16→22:24)
[2016-07-29] MEDS ORDERED: OXYTOCIN 20 UNIT IV PRN (21:24)
[2016-07-29] MEDS ORDERED: DIBUCAINE 1% OINTMENT 28 GM TP PRN (21:24)
[2016-07-29] MEDS ORDERED: BENZOCAINE/MENTHOL AEROSOL SPRAY 56 ML TOP PRN (21:24)
[2016-07-29] MEDS ORDERED: ZOLPIDEM TARTRATE 5 MG TABLET PO PRN (21:24)
[2016-07-29] MEDS ORDERED: DIPH/PERTUSS(ACELL)/TETANUS VAC/PF 0.5 ML SYR (>=10YO) IM PRN (21:24)
[2016-07-29] MEDS ORDERED: ACETAMINOPHEN WITH CODEINE #3 TABLET PO PRN (21:24)
[2016-07-29] MEDS ORDERED: MEASLES,MUMPS&RUBELLA VACC/PF 0.5 ML VIAL SUBCUT PRN (21:24)
[2016-07-29] MEDS ORDERED: SODIUM CHLORIDE IV PRN (21:24)
[2016-07-29] MEDS ORDERED: MISOPROSTOL 0.2 MG TABLET PR PRN (21:24)
--- NOTE | 2016-07-29 22:00 | L&D Flow Sheet ---
LD Flowsheet Datetime Report Generated by CPN: 07/29/2016 22:00 Datetime: 07/29/2016 21:45 Stage of : Recovery (Cindy MYRA Diaz) NBP Sys/[place]/Mean (mmHg): 135 (QS system process) : 67 (QS system process) : 95 (QS system process) Pulse: 68 (QS system process) Respirations: 16 (Cindykhloe Diaz RN) Pain Scale: 0 (Cindy Joe, RN) Pain Presence: None/Denies (Cindy Vitrano, RN) Pain Type: N/A (Cindy Vitrano, RN) Datetime: 07/29/2016 21:30 Stage of : Recovery (Cindy Vitrano, RN) NBP Sys/[place]/Mean (mmHg): 134 (QS system process) : 64 (QS system process) : 92 (QS system process) Pulse: 76 (QS system process) Respirations: 16 (Cindy Vitrano, RN) Pain Scale: 0 (Cindy Vitrano, RN) Pain Presence: None/Denies (Cindy Vitrano, RN) Pain Type: N/A (Cindy Vitrano, RN) Datetime: 07/29/2016 21:15 Stage of : Recovery (Cindy Vitrano, RN) NBP Sys/[place]/Mean (mmHg): 139 (QS system process) : 65 (QS system process) : 94 (QS system process) Pulse: 84 (QS system process) Respirations: 16 (Cindy Vitrano, RN) Pain Scale: 0 (Cindy Vitrano, RN) Pain Presence: None/Denies (Cindy Vitrano, RN) Pain Type: N/A (Cindy Vitrano, RN) Datetime: 07/29/2016 21:00 NBP Sys/[place]/Mean (mmHg): 135 (QS system process) : 58 (QS system process) : 84 (QS system process) Pulse: 81 (QS system process) Respirations: 16 (Cindy Vitrano, RN) Datetime: 07/29/2016 20:57 Communication Comments: to [facility] with A. [place], RN (Corrie Lattibeaudeir, RN) Datetime: 07/29/2016 20:45 NBP Sys/[place]/Mean (mmHg): 109 (QS system process) : 73 (QS system process) : 86 (QS system process) Pulse: 82 (QS system process) Respirations: 15 (Cindy Vitrano, RN) Datetime: 07/29/2016 20:44 Stage of : Recovery (Cindy Vitrano, RN) Datetime: 07/29/2016 20:40 Monitor Mode: External; Palpation (Cindy Radhaano, RN) Frequency (min): 2-3 (Cindy Vitrano, RN) Quality: Moderate to Strong (Cindy Vitrano, RN) Duration (sec): 60-90 (Cindy Vitrano, RN) Duration Criteria: Less than Two 120 Second Contractions (Cindy Vitrano, RN) Pattern: Normal: <= 5 Contractions in 10 Minutes (Cindy Vitrano, RN) Resting Tone (Palpate): Relaxed (Cindy Vitrano, RN) Monitor Mode: External US (Cindy Vitrano, RN) Variability: Moderate 6-25 bpm (Cindy Vitrano, RN) Comments: Unable to establish baseline, RN at bedside adjusting US while pt pushes (Cindy Radhaano, RN) Pitocin (milliunit): Pitocin Remains (milliunits) @ 18 (Cindy Radhaano, RN) Stage 2 Comments: viable baby girl, see delivery summary (Cindy Vitrano, RN) Datetime: 07/29/2016 20:34 Pushing Progress: with Pushing (Cindy Vitrano, RN) Datetime: 07/29/2016 20:30 Monitor Mode: External (Cindy Vitrano, RN) Frequency (min): 2-3 (Cindy Vitrano, RN) Quality: Moderate to Strong (Cindy Vitrano, RN) Duration (sec): 50-80 (Cindy Vitrano, RN) Duration Criteria: Less than Two 120 Second Contractions (Cindy Vitrano, RN) Pattern: Normal: <= 5 Contractions in 10 Minutes (Cindy Vitrano, RN) Resting Tone (Palpate): Relaxed (Cindy Vitrano, RN) Monitor Mode: External US (Cindy Vitrano, RN) Variability: Moderate 6-25 bpm (Cindy Vitrano, RN) Comments: Unable to establish baseline, unable to assess accel/decel; RN at bedside adjusting US while pt pushes (Cindy Vitrano, RN) Pitocin (milliunit): Pitocin Remains (milliunits) @ 18 (Cindy Vitrano, RN) Datetime: 07/29/2016 20:26 Pushing Progress: Presenting Part Visible (Cindy Vitrano, RN) Datetime: 07/29/2016 20:22 Stage 2 Comments: Bed broken down for delivery (Cindy Vitrano, RN) Datetime: 07/29/2016 20:15 Monitor Mode: External (Cindy Vitrano, RN) Frequency (min): 1.5-3 (Cindy Vitrano, RN) Quality: Moderate to Strong (Cindy Vitrano, RN) Duration (sec): 60-80 (Cindy Vitrano, RN) Duration Criteria: Less than Two 120 Second Contractions (Cindy Vitrano, RN) Pattern: Normal: <= 5 Contractions in 10 Minutes (Cindy Vitrano, RN) Resting Tone (Palpate): Relaxed (Cindy Vitrano, RN) Monitor Mode: External US (Cindy Vitrano, RN) FHR Baseline Rate : 130 (Cindy Vitrano, RN) Variability: Minimal - Undetectable to <=5 bpm (Cindy Vitrano, RN) Accelerations: 15X15 (Cindy Vitrano, RN) Decelerations: Variable (Cindy Vitrano, RN) Pitocin (milliunit): Pitocin Remains (milliunits) @ 18 (Cindy Vitrano, RN) Datetime: 07/29/2016 20:12 Stage 2 Comments: Tug of war (Cindy Vitrano, RN) Datetime: 07/29/2016 20:06 Temperature (F): 98.7 (Cindy Vitrano, RN) Temperature (C): 37.1 (QS system process) Pushing Progress: Descent with Pushing (Cindy Vitrano, RN) Stage 2 Comments: Pushing effectively (Cindy Diaz RN) Communication Comments: Dr. Mckeon at bedside to assess pt (Cindy Diaz RN) LaborFlag: Labor (QS system process) Datetime: 07/29/2016 20:00 Monitor Mode: External; Palpation (Cindy Diaz RN) Frequency (min): 2-3 (Cindy Diaz RN) Quality: Moderate to Strong (Cindy Diaz RN) Duration (sec): 60-120 (Cindy Diaz, MYRA) Duration Criteria: Less than Two 120 Second Contractions (Cindy Diaz RN) Pattern: Normal: <= 5 Contractions in 10 Minutes (Cindy Diaz RN) Resting Tone (Palpate): Relaxed (Cindy Diaz, MYRA) Monitor Mode: External US (Cindy Diaz RN) FHR Baseline Rate : 145 (Cindy Diaz, MYRA) Variability: Moderate 6-25 bpm (Cindy Diaz, MYRA) Accelerations: 15X15 (Cindy Diaz, MYRA) Decelerations: None (Cindy Diaz, MYRA) Pitocin (milliunit): Pitocin Remains (milliunits) @ 18 (Cindy Diaz, MYRA)
--- NOTE | 2016-07-29 22:09 | Delivery Summary ---
Del Sum A-C Datetime Report Generated by CPN: 07/29/2016 22:09 ADMISSION DATA Chief Complaint: Scheduled Induction of Labor Indication for Induction: Post Dates Admission Impression: Induction of Labor Admit Provider Comments: 30yo at 41w1d into L_D for IOL for posdates. B pos, RI, GBS positive. Proven pelvis to 8lbs (per pt.) also complicated by Obesity otherwise uncomplicated. Pt. has received care at [facility] with one time consult at [facility] (records available, however no copies of labs attached to copies of care). Pt. had growth u/s on 07/23/16 and EFW 4051. Pt. is Arabic speaking only. Reviewed POC, pt. and asked questions and verbalized understanding. Will proceed with pitocin as planned and GBS protocol initiated. DELIVERY PERSONNEL Delivery Doctor:: Maureen Mckeon MD Labor and Delivery Nurse:: Cindy Diaz RNgrocery store bagger Nurse:: Corrie Escobedo RN Business Continuity Strategy Director/CRITICAL CARE PHYSICIAN: [facility] MATERNAL INFORMATION Delivery Anesthesia: Epidural Medications After Delivery: Pitocin Bolus-Please Comment Meds After Delivery Comment: Pitocin 40 units in 1000 ml NS bolusing after delivery of placenta Maternal Complications: None Provider Comments: VFI delivered in [place] presentation. No nuchal cord. Shoulders and body delivered without difficulty. Cord doubly clamped and cut and to maternal abdomen for skin to skin. Placenta delivered intact but retained trailing membranes delivered with crudee. FF at U after Pitocin and cytotec given. Ancef 2 grams given IV x 1 due to crudee. 20ml of 1% lidocaine given for repair of perineal laceration. Apgars 8/9, weight 11#3oz. Mother and baby stable upon provider leaving the room. Skin to skin done. Pt will try to breastfeed. LABOR SUMMARY EDC: 07/21/2016 00:00 No. Babies in Womb: 1 Attempted: No Labor Anesthesia: None LABOR INFORMATION Reason for Induction: Post Dates Onset of Labor: 07/29/2016 15:55 Complete Dilatation: 07/29/2016 17:36 Oxytocin: Induction Group B Beta Strep: positive Antibiotics # of Doses: 3 Antibiotics Time of Last Dose: 1955 Name of Antibiotic Given: PCN Steroids Given: None Reason Steroids Not Administered: Not Applicable MEMBRANES Membranes Rupture Method: Spontaneous Rupture of Membranes: 07/29/2016 16:10 Length of Rupture (hr): 4.50 Amniotic Fluid Color: Clear Amniotic Fluid Amount: Large Amniotic Fluid Odor: Normal STAGES OF LABOR Stage 1 hr: 1 Stage 1 min: 41 Stage 2 hr: 3 Stage 2 min: 4 Stage 3 hr: 0 Stage 3 min: 4 Total Time in Labor hr: 4 Total Time in Labor min: 49 VAGINAL DELIVERY Episiotomy: None Laceration Extension: Second Degree Laceration Type: Perineal Laceration Repair: Yes Laceration Repair Note: 2nd degree perineal laceration repaired in usual fashion. Good hemostasis Sponge Count Correct: N/A Sharps Count Correct: Yes CSECTION DELIVERY Primary Indication: N/A Secondary Indication: N/A CSection Incidence: N/A Labor: N/A Elective: N/A CSection Incision: N/A BABY A INFORMATION Delivery Date/Time: 07/29/2016 20:40 Method of Delivery: Vaginal Born in Route : No : N/A Forceps: N/A Vacuum Extraction: N/A Shoulder Dystocia : No PRESENTATION/POSITION BABY A Presentation: Cephalic Cephalic Presentation: Vertex Vertex Position: Left Occipital Anterior Breech Presentation: N/A PLACENTA INFORMATION BABY A Placenta Delivery Time : 07/29/2016 20:44 Placenta Method of Delivery: Spontaneous Placenta Status: Delivered SCORES BABY A Heart Rate 1 min: >100 bpm Resp Effort 1 min: Good Cry Reflex Irritability 1 min: Cough or Sneeze or Pulls Away Muscle Tone 1 min: Active Motion Color 1 min: Blue/Pale Resuscitation Effort 1 min: Tactile Stimulation SCORE 1 MIN: 8 Heart Rate 5 min: >100 bpm Resp Effort 5 min: Good Cry Reflex Irritability 5 min: Cough or Sneeze or Pulls Away Muscle Tone 5 min: Active Motion Color 5 min: Body [place], Extremities Blue Resuscitation Effort 5 min: Tactile Stimulation SCORE 5 MIN: 9 INFANT INFORMATION BABY A Gestational Age at Delivery: 41.1 Gestational Status: Late Term- 41- 41.6 Weeks Outcome : Liveborn Infant Condition : Stable Sex: Female IDENTIFICATION BABY A Infant Verification Date/Time: 07/29/2016 20:45 ID Band Number: [id number] Mother's Name Verified: Yes Infant RN Verifying : Brice Barton RN Additional Verifying Personnel: DEulalio Ruth, CRITICAL CARE PHYSICIAN WEIGHT/LENGTH BABY A Infant Birthweight (gm): 5085 Weight (lb): 11 Weight (oz): 3 Length (in): 20.00 Length (cm): 50.80 CORD INFORMATION BABY A No. Cord Vessels: 3 Nuchal Cord : N/A Cord Blood Taken: Yes-For Storage (Mom's Blood type +) Suction: Mouth; Nose; Pharynx ASSESSMENT BABY A Complications: Meconium Infant Complications- Other: Terminal meconium Physical Findings at Delivery: Within Normal Limits Respirations: Appears Normal Skin to Skin: Yes Skin to Skin Time (min): 5 [employer] Assistant Principal/ALS Called : No Infant Care By: Pauly Escobedo RN/Norm Luo RN Transferred To: Nursery BABY B INFORMATION : N/A SIGNATURES Signature: with User ID: [email or web address]
[2016-07-29] MEDS ORDERED: IBUPROFEN 800 MG TABLET ONE (22:16)
[2016-07-29] MEDS: IBUPROFEN 800 MG TABLET PO SCH (22:17)
--- NOTE | 2016-07-29 22:52 | Admission Physical ---
Datetime Report Generated by CPN: 07/29/2016 22:51 CURRENT ADMISSION Hx Assessment: The History has been Reviewed and is Current Chief Complaint: Scheduled Induction of Labor Indication for Induction: Post Dates Admit Plan: Admit to Unit; Initiate Labor Induction Protocol ALLERGIES Medication Allergies: No Medication Allergies: No Known Allergies (07/29/2016) Latex: No Latex Allergies Food Allergies: N/A Environmental Allergies: N/A OBSTETRICAL HISTORY EDC: 07/21/2016 00:00 : 2 Para: 1 Term: 1 : 0 SAB: 0 IAB: 0 Ectopic: 0 Livin Cesareans: 0 VBACs: 0 Multiple Births: 0 Gestational Diabetes: No Rh Sensitization: No Incompetent Cervix: No MIKE: No Infertility: No ART Treatment: No Uterine Anomaly: No IUGR: No Hx Previous C/S: No Macrosomia: No Hx Loss/Stillborn: No PIH: No Hx : No Placenta Previa/Abruption: No Depression/PP Depression: No PTL/PROM: No Post Hemorrhage: No SEE RECORDS Alcohol: No Marijuana : No Cocaine: No Other Illicit Drugs: No Cigarettes: Never Smoker. [id number] MEDICAL HISTORY Diabetes: No Blood Transfusion: No Pulmonary Disease (Asthma, TB): No Breast Disease: No Hypertension: No Non Linear Editor Surgery: No Heart Disease: No Hosp/Surgery: No Autoimmune Disorder: No Anesthetic Complications: No Kidney Disease: No Abnormal Pap Smear: No Neuro/Epilepsy: No Psychiatric Disorders: No Other Medical Diseases: No Hepatitis/Liver Disease: No Significant Family History: No Varicosities/Phlebitis: No Trauma/Violence : No Thyroid Dysfunction: No INFECTIOUS HISTORY Gonorrhea: No Genital Herpes: No Chlamydia: No Tuberculosis: No Syphilis: No Hepatitis: No HIV/AIDS Exposure: No Rash or Viral Illness: No HPV: No PHYSICAL EXAM General: Normal HEENT: Normal Neurologic: Normal Thyroid: Normal Heart: Normal Lungs: Normal Breast: Normal Back: Normal Abdomen: Normal Genitourinary Exam: Normal Extremities: Abnormal DTRs: Normal Pelvic Type: Adequate Physical Exam Comments: +2 pitting edema bilateral lower extremities. Vital Signs: Reviewed; Within Normal Limits VAGINAL EXAM Dilatation: 10 Effacement: 100 Station: 0 Contraction Comments: 2-3 MEMBRANES Membranes: Ruptured Amniotic Fluid Color: white FETUS A EGA: 41.1 Monitoring: External US FHR Category: Category I Estimated Weight (gm): 4200 Presentation: Vertex Admit Comment: 30yo at 41w1d into L_D for IOL for posdates. B pos, RI, GBS positive. Proven pelvis to 8lbs (per pt.) also complicated by Obesity otherwise uncomplicated. [place]. [place] [facility] time consult at [facility] (records available, however no copies of labs attached to copies of care). Pt. had growth u/s on 07/23/16 and EFW 4051. Pt. is Hungarian speaking only. Reviewed POC, pt. and asked questions and verbalized understanding. Will proceed with pitocin as planned and GBS protocol initiated. PLANS FOR LABOR AND DELIVERY Labor and Delivery: None Pain Management: Natural; Medications; Epidural Feeding Preference: Both Benefit of Breast Feed Discussed: Yes Circumcision: N/A INFORMED CONSENT Informed Consent Obtained: Vaginal Delivery; Risks, Benefits and Alternatives Discussed Assignment: Maureen Mckeon MD Signature: with User ID: Vania : with User ID: [email or web address]
[2016-07-29] MEDS: ACETAMINOPHEN WITH CODEINE #3 TABLET PO PRN (23:38)
[2016-07-30] MEDS: IBUPROFEN 800 MG TABLET PO SCH ×3 (06:04→21:25)
--- NOTE | 2016-07-30 07:01 | L&D Flow Sheet ---
LD Flowsheet Datetime Report Generated by CPN: 07/30/2016 07:00 Datetime: 07/29/2016 22:45 Stage of : Recovery (Cindy Vitrano, RN) Pain Scale: 0 (Cindy Vitrano, RN) Pain Presence: None/Denies (Cindy Vitrano, RN) Pain Type: N/A (Cindy Vitrano, RN) Datetime: 07/29/2016 22:35 Stage of : Recovery (Cindy Vitrano, RN) Datetime: 07/29/2016 22:30 Stage of : Recovery (Cindy Vitrano, RN) NBP Sys/[place]/Mean (mmHg): 130 (QS system process) : 68 (QS system process) : 94 (QS system process) Pulse: 73 (QS system process) Respirations: 16 (Cindy Vitrano, RN) Pain Scale: 0 (Cindy Vitrano, RN) Pain Presence: None/Denies (Cindy Vitrano, RN) Pain Type: N/A (Cindy Vitrano, RN) Datetime: 07/29/2016 22:15 Stage of : Recovery (Cindy Vitrano, RN) NBP Sys/[place]/Mean (mmHg): 130 (QS system process) : 67 (QS system process) : 93 (QS system process) Pulse: 69 (QS system process) Respirations: 16 (Cindy Vitrano, RN) Pain Scale: 0 (Cindy Vitrano, RN) Pain Presence: None/Denies (Cindy Vitrano, RN) Pain Type: N/A (Cindy Vitrano, RN) Datetime: 07/29/2016 22:00 Stage of : Recovery (Cindy Vitrano, RN) NBP Sys/[place]/Mean (mmHg): 136 (QS system process) : 76 (QS system process) : 101 (QS system process) Pulse: 81 (QS system process) Respirations: 16 (Cindy Vitrano, RN) Pain Scale: 0 (Cindy Vitrano, RN) Pain Presence: None/Denies (Cindy Vitrano, RN) Pain Type: N/A (Cindy Vitrano, RN) Datetime: 07/29/2016 21:45 Stage of : Recovery (Cindy Vitrano, RN) NBP Sys/[place]/Mean (mmHg): 135 (QS system process) : 67 (QS system process) : 95 (QS system process) Pulse: 68 (QS system process) Respirations: 16 (Cindy Vitrano, RN) Pain Scale: 0 (Cindy Vitrano, RN) Pain Presence: None/Denies (Cindy Vitrano, RN) Pain Type: N/A (Cindy Vitrano, RN) Datetime: 07/29/2016 21:30 Stage of : Recovery (Cindy Vitrano, RN) NBP Sys/[place]/Mean (mmHg): 134 (QS system process) : 64 (QS system process) : 92 (QS system process) Pulse: 76 (QS system process) Respirations: 16 (Cindy Vitrano, RN) Pain Scale: 0 (Cindy Vitrano, RN) Pain Presence: None/Denies (Cindy Vitrano, RN) Pain Type: N/A (Cindy Vitrano, RN) Datetime: 07/29/2016 21:15 Stage of : Recovery (Cindy Vitrano, RN) NBP Sys/[place]/Mean (mmHg): 139 (QS system process) : 65 (QS system process) : 94 (QS system process) Pulse: 84 (QS system process) Respirations: 16 (Cindy Vitrano, RN) Pain Scale: 0 (Cindy Vitrano, RN) Pain Presence: None/Denies (Cindy Vitrano, RN) Pain Type: N/A (Cindy Vitrano, RN) Datetime: 07/29/2016 21:00 NBP Sys/[place]/Mean (mmHg): 135 (QS system process) : 58 (QS system process) : 84 (QS system process) Pulse: 81 (QS system process) Respirations: 16 (Cindy Vitrano, RN) Datetime: 07/29/2016 20:57 Communication Comments: Infant to Nsy with A. Valerio, RN (Correi Lattibeaudeir, RN) Datetime: 07/29/2016 20:45 NBP Sys/[place]/Mean (mmHg): 109 (QS system process) : 73 (QS system process) : 86 (QS system process) Pulse: 82 (QS system process) Respirations: 15 (Cindy Vitrano, RN) Datetime: 07/29/2016 20:44 Stage of : Recovery (Cindy Vitrano, RN) Datetime: 07/29/2016 20:40 Monitor Mode: External; Palpation (Cindy Vitrano, RN) Frequency (min): 2-3 (Cindy Vitrano, RN) Quality: Moderate to Strong (Cindy Vitrano, RN) Duration (sec): 60-90 (Cindy Vitrano, RN) Duration Criteria: Less than Two 120 Second Contractions (Cindy Vitrano, RN) Pattern: Normal: <= 5 Contractions in 10 Minutes (Cindy Vitrano, RN) Resting Tone (Palpate): Relaxed (Cindy Vitrano, RN) Monitor Mode: External US (Cindy Vitrano, RN) Variability: Moderate 6-25 bpm (Cindy Vitrano, RN) Comments: Unable to establish baseline, RN at bedside adjusting US while pt pushes (Cindykhloe Diaz, RN) Pitocin (milliunit): Pitocin Remains (milliunits) @ 18 (Cindy Diaz, RN) Stage 2 Comments: viable baby girl, see delivery summary (Cindy Diaz, RN) Datetime: 07/29/2016 20:34 Pushing Progress: with Pushing (Cindy Joe, RN) Datetime: 07/29/2016 20:30 Monitor Mode: External (Cindy Joe, RN) Frequency (min): 2-3 (Cindy Joe, RN) Quality: Moderate to Strong (Cindy Joe, RN) Duration (sec): 50-80 (Cindy Vitrano, RN) Duration Criteria: Less than Two 120 Second Contractions (Cindy Joe, RN) Pattern: Normal: <= 5 Contractions in 10 Minutes (Cindy Joe, RN) Resting Tone (Palpate): Relaxed (Cindy Vitrano, RN) Monitor Mode: External US (Cindy Vitrano, RN) Variability: Moderate 6-25 bpm (Cindy Vitrano, RN) Comments: Unable to establish baseline, unable to assess accel/decel; RN at bedside adjusting US while pt pushes (Cindy Vitrano, RN) Pitocin (milliunit): Pitocin Remains (milliunits) @ 18 (Cindy Vitrano, RN) Datetime: 07/29/2016 20:26 Pushing Progress: Presenting Part Visible (Cindy Vitrano, RN) Datetime: 07/29/2016 20:22 Stage 2 Comments: Bed broken down for delivery (Cindy Vitrano, RN) Datetime: 07/29/2016 20:15 Monitor Mode: External (Cindy Vitrano, RN) Frequency (min): 1.5-3 (Cindy Vitrano, RN) Quality: Moderate to Strong (Cindy Vitrano, RN) Duration (sec): 60-80 (Cindy Vitrano, RN) Duration Criteria: Less than Two 120 Second Contractions (Cindy Vitrano, RN) Pattern: Normal: <= 5 Contractions in 10 Minutes (Cindy Vitrano, RN) Resting Tone (Palpate): Relaxed (Cindy Vitrano, RN) Monitor Mode: External US (Cindy Vitrano, RN) FHR Baseline Rate : 130 (Cindy Vitrano, RN) Variability: Minimal - Undetectable to <=5 bpm (Cindy Vitrano, RN) Accelerations: 15X15 (Cindy Vitrano, RN) Decelerations: Variable (Cindy Vitrano, RN) Pitocin (milliunit): Pitocin Remains (milliunits) @ 18 (Cindy Vitrano, RN) Datetime: 07/29/2016 20:12 Stage 2 Comments: Tug of war (Cindy Vitrano, RN) Datetime: 07/29/2016 20:06 Temperature (F): 98.7 (Cindy Vitrano, RN) Temperature (C): 37.1 (QS system process) Pushing Progress: Descent with Pushing (Cindy Joe, RN) Stage 2 Comments: Pushing effectively (Cindy Vitrano, RN) Communication Comments: Dr. Mckeon at bedside to assess pt (Cindykhloe Diaz, RN) LaborFlag: Labor (QS system process) Datetime: 07/29/2016 20:00 Monitor Mode: External; Palpation (Cindy Vitrano, RN) Frequency (min): 2-3 (Cindy Vitrano, RN) Quality: Moderate to Strong (Cindy Vitrano, RN) Duration (sec): 60-120 (Cindy Vitrano, RN) Duration Criteria: Less than Two 120 Second Contractions (Cindy Vitrano, RN) Pattern: Normal: <= 5 Contractions in 10 Minutes (Cindy Vitrano, RN) Resting Tone (Palpate): Relaxed (Cindy Vitrano, RN) Monitor Mode: External US (Cindy Vitrano, RN) FHR Baseline Rate : 145 (Cindy Vitrano, RN) Variability: Moderate 6-25 bpm (Cindy Vitrano, RN) Accelerations: 15X15 (Cindy Vitrano, RN) Decelerations: None (Cindy Vitrano, RN) Pitocin (milliunit): Pitocin Remains (milliunits) @ 18 (Cindy Vitrano, RN) Datetime: 07/29/2016 19:59 Comments: RN remains at bedside while pt pushes continously assessing FHTs (Cindy Vitrano, RN) Datetime: 07/29/2016 19:58 Communication Comments: Dr. Mckeon notified of urge to push, pt to begin pushing w contactions (Cindy Vitrano, RN) Datetime: 07/29/2016 19:56 Medication Comments: PCN 2.5 million units IVPB (Cindy Vitrano, RN) IV/Blood Work: New IV Bag Hung; IV Bag Number @ 3 (Cindy Vitrano, RN) Pushing: Urge to Push (Cindy Vitrano, RN) Datetime: 07/29/2016 19:45 Monitor Mode: External (Cindy Vitrano, RN) Frequency (min): 2-3 (Cindy Vitrano, RN) Quality: Moderate to Strong (Cindy Vitrano, RN) Duration (sec): 50-80 (Cindy Vitrano, RN) Duration Criteria: Less than Two 120 Second Contractions (Cindy Vitrano, RN) Pattern: Normal: <= 5 Contractions in 10 Minutes (Cindy Vitrano, RN) Resting Tone (Palpate): Relaxed (Cindy Vitrano, RN) Monitor Mode: External US (Cindy Vitrano, RN) FHR Baseline Rate : 145 (Cindy Vitrano, RN) Variability: Minimal - Undetectable to <=5 bpm (Cindy Vitrano, RN) Accelerations: 15X15 (Cindy Vitrano, RN) Decelerations: None (Cindy Vitrano, RN) Pitocin (milliunit): Pitocin Remains (milliunits) @ 18 (Cindy Vitrano, RN) Datetime: 07/29/2016 19:40 NBP Sys/[place]/Mean (mmHg): 122 (QS system process) : 82 (QS system process) : 97 (QS system process) Pulse: 97 (QS system process) Respirations: 16 (Cindy Vitrano, RN) Monitor Interventions for FHR: Ultrasound Adjusted (Cindy Vitrano, RN) LaborFlag: Labor (QS system process) Datetime: 07/29/2016 19:30 Monitor Mode: External (Cindy Vitrano, RN) Frequency (min): 1.5-2 (Cindy Vitrano, RN) Quality: Moderate to Strong (Cindy Vitrano, RN) Duration (sec): 50-100 (Cindy Vitrano, RN) Duration Criteria: Less than Two 120 Second Contractions (Cindy Vitrano, RN) Pattern: Normal: <= 5 Contractions in 10 Minutes (Cindy Vitrano, RN) Resting Tone (Palpate): Relaxed (Cindy Vitrano, RN) Monitor Mode: External US (Cindy Vitrano, RN) FHR Baseline Rate : 145 (Cindy Vitrano, RN) Variability: Moderate 6-25 bpm (Cindy Vitrano, RN) Accelerations: 10X10 (Cindy Vitrano, RN) Decelerations: Early; Variable (Cindy Vitrano, RN) Pitocin (milliunit): Pitocin Remains (milliunits) @ 18 (Cindy Vitrano, RN) Datetime: 07/29/2016 19:15 Monitor Mode: External (Cindy Vitrano, RN) Frequency (min): 1.5-3 (Cindy Vitrano, RN) Quality: Moderate to Strong (Cindy Vitrano, RN) Duration (sec): 60-100 (Cindy Vitrano, RN) Duration Criteria: Less than Two 120 Second Contractions (Cindy Vitrano, RN) Pattern: Normal: <= 5 Contractions in 10 Minutes (Cindy Vitrano, RN) Resting Tone (Palpate): Relaxed (Cindy Vitrano, RN) Monitor Mode: External US (Cindy Vitrano, RN) FHR Baseline Rate : 140 (Cindy Vitrano, RN) Variability: Moderate 6-25 bpm (Cindy Vitrano, RN) Accelerations: 15X15 (Cindy Vitrano, RN) Decelerations: None (Cindy Vitrano, RN) Pitocin (milliunit): Pitocin Remains (milliunits) @ 18 (Cindy Vitrano, RN) Datetime: 07/29/2016 19:09 NBP Sys/[place]/Mean (mmHg): 129 (QS system process) : 80 (QS system process) : 98 (QS system process) Pulse: 97 (QS system process) Respirations: 16 (Cindy Vitrano, RN) LaborFlag: Labor (QS system process) Datetime: 07/29/2016 19:07 Patient Position/Activity: Right Tilt; Tailors (Cindy Vitrano, RN) Datetime: 07/29/2016 19:06 Communication Comments: Pt to labor down with epidural pump off until sensation to push increases. CEulalio Kline CNM at bedside reviewing POC with pt and all pt questions answered. (Cindy Vitrano, RN) Datetime: 07/29/2016 19:02 Pushing Progress: Ineffective Pushing (Annotations: No descent, ineffective pushing) (Cindy Radhaano, RN) Communication Comments: Dr. Mckeon at bedside to assess pt (Cindy Vitrano, RN) Datetime: 07/29/2016 19:00 Monitor Mode: External (Cindy Vitrano, RN) Frequency (min): 1.5-3 (Cindy Vitrano, RN) Quality: Moderate to Strong (Cindy Vitrano, RN) Duration (sec): 50-80 (Cindy Vitrano, RN) Duration Criteria: Less than Two 120 Second Contractions (Cindy Vitrano, RN) Pattern: Normal: <= 5 Contractions in 10 Minutes (Cindy Vitrano, RN) Resting Tone (Palpate): Relaxed (Cindy Vitrano, RN) Monitor Mode: External US (Cindy Vitrano, RN) FHR Baseline Rate : 130 (Cindy Vitrano, RN) Variability: Minimal - Undetectable to <=5 bpm (Cindy Vitrano, RN) Accelerations: None (Cindy Vitrano, RN) Decelerations: Early; Variable (Cindy Vitrano, RN) Pitocin (milliunit): Pitocin Remains (milliunits) @ 18 (Cindy Vitrano, RN)
[2016-07-30 07:52] LABS: HEMATOCRIT 33.1 % (36.0-47.0); HGB HCT DIFFERENCE -0.1; MEAN CORPUSCULAR HEMOGLOBIN 27.5 pg (27.0-33.4); MEAN CORPUSCULAR HGB CONC 33.1 g/dL (32.0-36.0); MEAN CORPUSCULAR VOLUME 83 fl (80-97); RED BLOOD COUNT 3.99 10^6/uL (3.72-5.28); RED CELL DISTRIBUTION WIDTH 17.2 % (11.5-14.0); WHITE BLOOD COUNT 10.8 10^3/uL (4.0-10.5)
--- NOTE | 2016-07-30 09:47 | PDOC PROGRESS REPORT ---
Subjective-OB Subjective: Post Delivery Day: 30 year old. Denies any needs at this time Physical Exam (OB) Vital Signs: Temp Pulse Resp BP Pulse Ox 98.3 F 95 18 129/55 H 97 07/30/16 07:32 07/30/16 07:32 07/30/16 07:32 07/30/16 07:32 07/30/16 07:32 Intake & Output 07/29/16 07/30/16 07/31/16 06:59 06:59 06:59 Weight 111.95 kg - PIH/Pre-Eclampsia Clonus: Negative - Lochia Lochia Amount: Scant < 10 ml Lochia Color: Rubra/Red - Abdomen Description: Soft, Round Hernia Present: No Bowel Sounds: Normoactive Flatus Presence: Present Stool: No Fundal Description: Firm, Non-Midline Fundal Height: 1/u - 2/u Objective-Diagnostic Laboratory: 07/30/16 07:24 07/29/16 07/29/16 07/29/16 11:30 12:32 12:32 WBC 6.4 RBC 4.47 Hgb 12.1 Hct 36.8 MCV 82 MCH 27.1 MCHC 33.0 RDW 17.3 H Plt Count 179 Seg Neutrophils % 68.8 Lymphocytes % 21.7 Monocytes % 9.1 Eosinophils % 0.2 Basophils % 0.2 Absolute Neutrophils 4.4 Absolute Lymphocytes 1.4 Absolute Monocytes 0.6 Absolute Eosinophils 0.0 Absolute Basophils 0.0 Urine Color YELLOW Urine Appearance CLOUDY Urine pH 6.0 Ur Specific [place] 1.013 Urine Protein 30 H Urine Glucose (UA) NEGATIVE Urine Ketones NEGATIVE Urine Blood SMALL H Urine Nitrite NEGATIVE Ur Leukocyte Esterase LARGE H Blood Type B POSITIVE Antibody Screen NEGATIVE 07/30/16 07:24 WBC 10.8 H RBC 3.99 Hgb 11.0 L Hct 33.1 L MCV 83 MCH 27.5 MCHC 33.1 RDW 17.2 H Plt Count 152 Seg Neutrophils % Lymphocytes % Monocytes % Eosinophils % Basophils % Absolute Neutrophils Absolute Lymphocytes Absolute Monocytes Absolute Eosinophils Absolute Basophils Urine Color Urine Appearance Urine pH Ur Specific [place] Urine Protein Urine Glucose (UA) Urine Ketones Urine Blood Urine Nitrite Ur Leukocyte Esterase Blood Type Antibody Screen
[2016-07-30] MEDS: FERROUS SULFATE 325 MG TABLET PO SCH ×2 (10:52→17:54)
[2016-07-30] MEDS: SENNOSIDES/DOCUSATE 8.6-50 MG 1 EACH TABLET PO SCH (10:52)
[2016-07-30] MEDS: PRENATAL VITAMIN W-O CA NO5/FE FUMARATE/FA CAPSULE PO SCH (10:53)
[2016-07-30] MEDS: DOCUSATE SODIUM 100 MG CAPSULE PO SCH ×2 (10:53→17:54)
[2016-07-30] MEDS: ACETAMINOPHEN WITH CODEINE #3 TABLET PO PRN (15:35)
--- NOTE | 2016-07-30 18:01 | L&D General Admission ---
General Admit Datetime Report Generated by CPN: 07/30/2016 18:00 INFORMATION Patient Age: 30 (07/24/2016 15:12:QS system process) EDC: 07/21/2016 00:00 (07/24/2016 15:34:Brianna Pimentel RN) : 2 (07/24/2016 15:34:Cindy Diaz RN) Para: 1 (07/24/2016 15:34:Cindy Diaz RN) Term: 1 (07/24/2016 15:34:Cindy Diaz RN) : 0 (07/24/2016 15:34:Cindy Diaz RN) Spontaneous Abortions: 0 (07/24/2016 15:34:Cindy Diaz RN) Induced Abortions: 0 (07/24/2016 15:34:Cindy Diaz RN) Livin (07/24/2016 15:34:Cindy Diaz RN) Cesareans: 0 (07/24/2016 15:34:Cindy Diaz RN) VBACs: 0 (07/24/2016 15:34:Cindy Diaz RN) Ectopic: 0 (07/24/2016 15:34:Cindy Diaz RN) Multiple Births: 0 (07/24/2016 15:34:Cindy Diaz RN) Baby, Number in Womb: 1 (07/26/2016 18:20:Adrianna Mackay RNKirby) CARE Primary Presser All Around: [facility] [place] (07/24/2016 15:34:Cindy Diaz RN) Month of 1st Visit: 01/2016 (07/24/2016 15:34:Cindy Diaz RN) Adequate Care: No (07/24/2016 15:34:Cindy Diaz RN) Height (in): 64 (07/30/2016 11:04:QS system process) ALLERGIES Medication Allergy: No (07/24/2016 15:34:Cindy Diaz RN) Medication Allergies: No Known Allergies (07/29/2016) (07/29/2016 19:46:QS system process) Latex Allergy: No Latex Allergies (07/24/2016 15:34:Cindy Diaz RN) Food Allergies: N/A (07/24/2016 15:34:Cindy Diaz RN) Environmental Allergies: N/A (07/24/2016 15:34:Cindy Diaz RN) COMMUNICATION Primary Language: Namibian (07/24/2016 15:34:Brianna Pimentel RN) Medical Tx Preferred Language: Namibian (07/24/2016 15:34:BHARTI Escobar) Upper Sorbian Communication Ability: No understanding, MANAGER RESEARCH needed (07/24/2016 15:34:Brianna Pimentel RN) Communication Barrier(s): Language barrier (07/24/2016 15:34:Brianna Pimentel RN) DEMOGRAPHICS Address: [address] [place] [id number] (07/29/2016 12:46:QS system process) Zipcode: [address] (07/24/2016 15:12:QS system process) Home (07/24/2016 15:12:QS system process) SSN: [id number] (07/24/2016 15:12:QS system process) Next of Kin Name: ELIZABETH MONZON (07/24/2016 15:12:QS system process) Next of Kin (07/29/2016 12:46:QS system process) Next of Kin Relationship: OR (07/24/2016 15:12:QS system process) Date of : 1985 (07/24/2016 15:12:QS system process) Marital Status: Single (07/24/2016 15:12:QS system process) Sex: Female (07/24/2016 15:12:QS system process) Race: Other (07/24/2016 15:12:QS system process) Ethnicity: or (07/24/2016 15:12:QS system process) Pentecostal: None (07/24/2016 15:12:QS system process) DRUG AND ALCOHOL USE Alcohol: No (07/24/2016 15:34:Cindy Diaz RN) Cigarettes: Never Smoker. [id number] (07/24/2016 15:34:Cindy Diaz RN) Marijuana: No (07/24/2016 15:34:Cindy Diaz RN) Cocaine: No (07/24/2016 15:34:Cindy Diaz RN) Other Illicit Drugs: No (07/24/2016 15:34:Cindy Diaz RN) VACCINE HISTORY Influenza Vaccine: Yes (07/24/2016 15:34:Cindy Diaz RN) Pneumococcal Vaccine: No (07/24/2016 15:34:Cindy Diaz RN) Tetanus Vaccine: Yes (07/24/2016 15:34:Cindy Diaz RN) Tdap Vaccine: Yes (07/24/2016 15:34:Cindy Diaz RN) Hepatitis B Vaccine: Yes (07/24/2016 15:34:Cindy Diaz RN) [place] Off: [facility] (07/24/2016 15:34:Cindy Diaz RN) Feeding Preference: Both (07/24/2016 15:34:Cindy Diaz RN) Benefit of Breast Feed Discussed: Yes (07/24/2016 15:34:Cindy Diaz RN) Circumcision: N/A (07/24/2016 15:34:Cindy Diaz RN) Classes Attended: No (07/24/2016 15:34:Cindy Diaz RN) Tubal Ligation: No (07/24/2016 15:34:Cindy Diaz RN) Tubal Authorization Signed: N/A (07/24/2016 15:34:Cindy Diaz RN) Consent: N/A (07/24/2016 15:34:Cindy Diaz RN) Consent Signed: N/A (07/24/2016 15:34:Cindy Diaz RN) Pain Management Plans: Natural; Medications; Epidural (07/24/2016 15:34:Cindy Diaz RN) Plans for Labor and Delivery: None (07/24/2016 15:34:Cindy Diaz RN) Support Person: Elizabeth (07/24/2016 15:34:Cindy Diaz RN) Support Person Relationship: (07/24/2016 15:34:Cindy Diaz RN) Cultural/Spritual Practice: No (07/24/2016 15:34:Cindy Diaz RN) Spir/Cult Dietary Needs: No (07/24/2016 15:34:Cindy Diaz RN) LIVING SITUATION/DISCHARGE PLAN Living Arrangements: Apartment (07/24/2016 15:34:Cindy Diaz RN) Adequate Access to:: Electric; Heat; Refrigeration; Phone; Transportation (07/24/2016 15:34:Cindy Diaz RN) WIC Program: Yes (07/24/2016 15:34:Cindy Diaz RN) Discharge Bulb Inspector Person: Elizabeth (07/24/2016 15:34:Cindy Diaz RN) Person to Help after Discharge: Elizabeth (07/24/2016 15:34:Cindy Diaz RN) Currently Using Commun Resources: No (07/24/2016 15:34:Cindy Diaz RN) Outside Agency/Splunk Developer: No (07/24/2016 15:34:Cindy Diaz RN) Adoption Requested: No (07/24/2016 15:34:Cindy Diaz RN) Pt Contact w/infant Post : N/A (07/24/2016 15:34:Cindy Diaz RN) LABS Blood Type: B Positive (07/24/2016 15:34:Brianna Pimentel RN) Antibody Screen: negative (07/24/2016 15:34:Brianna Pimentel RN) Rho(G) this : Not Applicable (07/24/2016 15:34:Cindy Diaz RN) Hemoglobin: 11.0 L (07/30/2016 07:24:QS system process) Hematocrit: 33.1 L (07/30/2016 07:24:QS system process) MCV: 83 (07/30/2016 07:24:QS system process) Group Beta Strep: positive (07/24/2016 15:34:Brianna Pimentel RN) Chlamydia: Negative (07/24/2016 15:34:Brianna Pimentel RN) RPR/VDRL: Nonreactive (07/24/2016 15:34:Brianna Pimentel RN) HIV Exposure Test: Negative (07/24/2016 15:34:Cindy Diaz RN) HIV Results: non reactive (07/24/2016 15:34:Brianna Pimentel RN) Hepatitis B: Negative (07/24/2016 15:34:Brianna Pimentel RN) Rubella: Immune (07/24/2016 15:34:Brianna Pimentel RN) Varicella: Non Susceptible (07/24/2016 15:34:Brianna Pimentel RN) OB/PREVIOUS HISTORY History of Previous : No (07/24/2016 15:34:Cindy Diaz RN) History of Gestational Diabetes: No (07/24/2016 15:34:Cindy Diaz RN) History of PIH: No (07/24/2016 15:34:Cindy Diaz RN) History of Incompetent Cervix: No (07/24/2016 15:34:Cindy Diaz RN) History of Placenta Previa/Abrup: No (07/24/2016 15:34:Cindy Diaz RN) History of Macrosomia: No (07/24/2016 15:34:Cindy Diaz RN) History of IUGR: No (07/24/2016 15:34:Cindy Diaz RN) History of Hemorrhage: No (07/24/2016 15:34:Cindy Diaz RN) History of Loss/Stillborn: No (07/24/2016 15:34:Cindy Diaz RN) History of : No (07/24/2016 15:34:Cindy Diaz RN) History of D (Rh) Sensitization: No (07/24/2016 15:34:Cindy Diaz RN) History Recurrent Loss/Stillborn: No (07/24/2016 15:34:Cindy Diaz RN) History Depression/PP Depression: No (07/24/2016 15:34:Cindy Diaz RN) History of Uterine Anomaly/MIKE: No (07/24/2016 15:34:Cindy Diaz RN) History of Infertility: No (07/24/2016 15:34:Cindy Diaz RN) History of ART Treatment: No (07/24/2016 15:34:Cindy Diaz RN) History of MIKE: No (07/24/2016 15:34:Cindy Diaz RN) MEDICAL HISTORY Med Hx Diabetes: No (07/24/2016 15:34:Cindy Diaz RN) Med Hx Hypertension: No (07/24/2016 15:34:Cindy Diaz RN) Med Hx Heart Disease: No (07/24/2016 15:34:Cindy Diaz RN) Med Hx Autoimmune Disorder: No (07/24/2016 15:34:iCndy Diaz RN) Med Hx Kidney Disease/UTI: No (07/24/2016 15:34:Cindy Diaz RN) Med Hx Neurologic/Epilepsy: No (07/24/2016 15:34:Cindy Diaz RN) Med Hx Psychiatric Disorders: No (07/24/2016 15:34:Cindy Diaz RN) Med Hx Hepatitis/Liver Disease: No (07/24/2016 15:34:Cindy Diaz RN) Med Hx Varicosities/Phlebitis: No (07/24/2016 15:34:Cindy Diaz RN) Med Hx Thyroid Dysfunction: No (07/24/2016 15:34:Cindy Diaz RN) Med Hx Trauma/Violence: No (07/24/2016 15:34:Cindy Diaz RN) Med Hx Blood Transfusion: No (07/24/2016 15:34:Cindy Diaz RN) Med Hx Pulmonary (Asthma,TB): No (07/24/2016 15:34:Cindy Diaz RN) Med Hx Breast: No (07/24/2016 15:34:Cindy Diaz RN) Med Hx HORTICULTURAL SERVICES SUPERVISOR Surgery: No (07/24/2016 15:34:Cindy Diaz RN) Med Hx Hospitalization/Surgery: No (07/24/2016 15:34:Cindy Diaz RN) Med Hx Anesthetic Complications: No (07/24/2016 15:34:Cindy Diaz RN) Med Hx Abnormal Pap Smear: No (07/24/2016 15:34:Cindy Diaz RN) Other Medical Diseases: No (07/24/2016 15:34:Cindy Diaz RN) Med Hx Significant Family Hx: No (07/24/2016 15:34:Cindy Diaz RN) INFECTIOUS HISTORY Inf Hx Gonorrhea: No (07/24/2016 15:34:Cindy Diaz RN) Inf Hx Chlamydia: No (07/24/2016 15:34:Cindy Diaz RN) Inf Hx Syphilis: No (07/24/2016 15:34:Cindy Diaz RN) Inf Hx HIV/AIDS: No (07/24/2016 15:34:Cindy Diaz RN) Inf Hx Human Papilloma Virus: No (07/24/2016 15:34:Cindy Diaz RN) Inf Hx Pt/Partner Genital Herpes: No (07/24/2016 15:34:Cindy Diaz RN) Inf Hx Tuberculosis/Exposure: No (07/24/2016 15:34:Cindy Diaz RN) Inf Hx Hepatitis B,C: No (07/24/2016 15:34:Cindy Diaz RN) Inf Hx Rash or Viral Illness: No (07/24/2016 15:34:Cindy Diaz RN) GENETIC HISTORY Gen Hx Age >=35 at KRISTIN: No (07/24/2016 15:34:Cindy Diaz RN) Gen Hx Thalassemia: No (07/24/2016 15:34:Cindy Diaz RN) Gen Hx Congenital Heart Defect: No (07/24/2016 15:34:Cindy Diaz RN) Gen Hx Neural Tube Defect: No (07/24/2016 15:34:Cindy Diaz RN) Gen Hx Down's Syndrome: No (07/24/2016 15:34:Cindy Diaz RN) Gen Hx Brett-Sachs: No (07/24/2016 15:34:Cindy Diaz RN) Gen Hx Kath: No (07/24/2016 15:34:Cindy Diaz RN) Gen Hx Familial Dysautonomia: No (07/24/2016 15:34:Cindy Diaz RN) Gen Hx Sickle Cell Disease/Trait: No (07/24/2016 15:34:Cindy Diaz RN) Gen Hx Hemophilia/Blood Disorder: No (07/24/2016 15:34:Cindy Diaz RN) Gen Hx Muscular Dystrophy: No (07/24/2016 15:34:Cindy Diaz RN) Gen Hx Cystic Fibrosis: No (07/24/2016 15:34:Cindy Diaz RN) Gen Hx Huntingtons Chorea: No (07/24/2016 15:34:Cindy Diaz RN) Gen Hx Mental Retardation/Autism: No (07/24/2016 15:34:Cindy Diaz RN) Gen Hx Tested for Fragile X: No (07/24/2016 15:34:Cindy Diaz RN) Gen Hx Other Inher/Chromosomal: No (07/24/2016 15:34:Cindy Diaz RN) Gen Hx Maternal Metabolic DO: No (07/24/2016 15:34:Cindy Diaz RN) Gen Hx Pt Father or FOB Defect: No (07/24/2016 15:34:Cindy Diaz RN) Gen Hx Other Genetic History: No (07/24/2016 15:34:Cindy Diaz RN) Gen Hx Drugs/Meds since LMP: No (07/24/2016 15:34:Cindy Diaz RN)
--- NOTE | 2016-07-30 18:01 | L&D Current Admission ---
Current Admit Datetime Report Generated by CPN: 07/30/2016 18:00 ADMISSION INFORMATION Current Admit Date/Time: 07/29/2016 11:28 (07/29/2016 12:20:Cindy Diaz RN) Reason for Admission: Induction of Labor (07/29/2016 12:20:Cindy Diaz RN) Chief Complaint: Scheduled Induction of Labor (07/29/2016 12:20:Cindy Diaz RN) Medications During : Vitamin (07/29/2016 12:20:Cindy Diaz RN) EGA per Dates: 41.1 (07/29/2016 12:20:QS system process) Method of Arrival: Ambulatory (07/29/2016 12:20:Cindy Diaz RN) Admitted From: Home (07/29/2016 12:20:Cindy Diaz RN) Reason for Induction: Postterm (07/29/2016 12:20:Cindy Diaz RN) Reason for Induction- Other: Post dates (07/29/2016 11:40:Christy Sandoval RN) Records Available: Yes (07/29/2016 12:20:Cindy Diaz RN) General Admission Information: Reviewed; Confirmed (07/29/2016 12:20:Cindy Diaz RN) General Admission Reviewed By: Valeria Diaz RN (07/29/2016 12:20:Cindy Diaz RN) BELONGINGS/ADVANCED DIRECTIVES Valuables/Personal Effects: Cell Phone (07/29/2016 12:20:Cindy Diaz RN) Other Belongings: See belongings consent (07/29/2016 12:20:Cindy Diaz RN) Disposition of Belongings: Kept with Patient (07/29/2016 12:20:Cindy Diaz RN) Advance Direct for Healthcare: No, and Wants No Information (07/29/2016 12:20:Cindy Diaz RN) Durable Power of Area Operations Director: No (07/29/2016 12:20:Cindy Diaz RN) Living Will: No (07/29/2016 12:20:Cindy Diaz RN) Organ Donor: No (07/29/2016 12:20:Cindy Diaz RN) Pt Rights Information Given: Yes (07/29/2016 12:20:Cindy Diaz RN) Pt Understands Pt Rights: Yes (07/29/2016 12:20:Cindy Diaz RN) LEARNING ASSESSMENT Knowledge Level: Understands L_D Process; Understands Care Activities; Had Pre-Hospital Education; Understands Diagnosis (07/29/2016 12:20:Cindy Diaz RN) Barriers to Learning: Communication Barrier (07/29/2016 12:20:Cindy Diaz RN) Learning Readiness: Motivated (07/29/2016 12:20:Cindy Diaz RN) Learns Best By: 1 to 1 Instruction (07/29/2016 12:20:Cindy Diaz RN) Learning Needs: Labor and Delivery Process; Pain Management; Symptoms to Report; Treatment Plan; Medication; Diagnosis; Nutrition; Equipment; Infant Care; Community Resources (07/29/2016 12:20:Cindy Diaz RN) DOMESTIC VIOLANCE SCREENING Dom Viol Threatened/Hurt: No (07/29/2016 12:20:Cindy Diaz RN) Hx of Abuse/Neglect past 2yrs: No (07/29/2016 12:20:Cindy Diaz RN) Feel Unsafe Going Home: No (07/29/2016 12:20:Cindy Diaz RN) Addt'l Observ Indicating Abuse: No (07/29/2016 12:20:Cindy Diaz RN) Reason Unable to Complete Screen: N/A, Screen Completed (07/29/2016 12:20:Cindy Diaz RN) Considered Personal Harm/Suicide: No (07/29/2016 12:20:Cindy Diaz RN) NUTRITIONAL/FUNCTIONAL SCREENING Problem with Appetite >5 Days: No (07/29/2016 12:20:Cindy Diaz RN) Chew/Swallow Difficulties: No (07/29/2016 12:20:Cindy Diaz RN) Inappropriate Wt Gain/Loss: No (07/29/2016 12:20:Cindy Diaz RN) Presence Skin Breakdown/Ulcer: No (07/29/2016 12:20:Cindy Diaz RN) Special Diet: No (07/29/2016 12:20:Cindy Diaz RN) Pt Requests Shirt Cleaner Visit: No (07/29/2016 12:20:Cindy Diaz RN) Hx of Any of the Following?: N/A (07/29/2016 12:20:Cindy Diaz RN) New Diagnosis of: N/A (07/29/2016 12:20:Cindy Diaz RN) Requires Assist w/Ambulation: No (07/29/2016 12:20:Cindy Diaz RN) Uses Assist Device to Ambulate: No (07/29/2016 12:20:Cindy Diaz RN) Pt Requires Help w/ADL's: No (07/29/2016 12:20:Cindy Diaz RN)
[2016-07-31] MEDS: IBUPROFEN 800 MG TABLET PO SCH ×2 (05:51→13:54)
--- NOTE | 2016-07-31 06:01 | L&D Current Admission ---
Current Admit Datetime Report Generated by CPN: 07/31/2016 06:00 ADMISSION INFORMATION Current Admit Date/Time: 07/29/2016 11:28 (07/29/2016 12:20:Cindy Diaz RN) Reason for Admission: Induction of Labor (07/29/2016 12:20:Cindy Diaz RN) Chief Complaint: Scheduled Induction of Labor (07/29/2016 12:20:Cindy Diaz RN) Medications During : Vitamin (07/29/2016 12:20:Cnidy Diaz RN) EGA per Dates: 41.1 (07/29/2016 12:20:QS system process) Method of Arrival: Ambulatory (07/29/2016 12:20:Cindy Diaz RN) Admitted From: Home (07/29/2016 12:20:Cindy Diaz RN) Reason for Induction: Postterm (07/29/2016 12:20:Cinyd Diaz RN) Reason for Induction- Other: Post dates (07/29/2016 11:40:Christy Sandoval RN) Records Available: Yes (07/29/2016 12:20:Cindy Diaz RN) General Admission Information: Reviewed; Confirmed (07/29/2016 12:20:Cindy Diaz RN) General Admission Reviewed By: Valeria Diaz RN (07/29/2016 12:20:Cindy Diaz RN) BELONGINGS/ADVANCED DIRECTIVES Valuables/Personal Effects: Cell Phone (07/29/2016 12:20:Cindy Diaz RN) Other Belongings: See belongings consent (07/29/2016 12:20:Cindy Diaz RN) Disposition of Belongings: Kept with Patient (07/29/2016 12:20:Cindy Diaz RN) Advance Direct for Healthcare: No, and Wants No Information (07/29/2016 12:20:Cindy Diaz RN) Durable Power of Store Sales Consultant: No (07/29/2016 12:20:Cindy Diaz RN) Living Will: No (07/29/2016 12:20:Cindy Diaz RN) Organ Donor: No (07/29/2016 12:20:Cindy Diaz RN) Pt Rights Information Given: Yes (07/29/2016 12:20:Cindy Diaz RN) Pt Understands Pt Rights: Yes (07/29/2016 12:20:Cindy Diaz RN) LEARNING ASSESSMENT Knowledge Level: Understands L_D Process; Understands Care Activities; Had Pre-Hospital Education; Understands Diagnosis (07/29/2016 12:20:Cindy Diaz RN) Barriers to Learning: Communication Barrier (07/29/2016 12:20:Cindy Diaz RN) Learning Readiness: Motivated (07/29/2016 12:20:Cindy Diaz RN) Learns Best By: 1 to 1 Instruction (07/29/2016 12:20:Cindy Diaz RN) Learning Needs: Labor and Delivery Process; Pain Management; Symptoms to Report; Treatment Plan; Medication; Diagnosis; Nutrition; Equipment; Infant Care; Community Resources (07/29/2016 12:20:Cindy Diaz RN) DOMESTIC VIOLANCE SCREENING Dom Viol Threatened/Hurt: No (07/29/2016 12:20:Cindy Diaz RN) Hx of Abuse/Neglect past 2yrs: No (07/29/2016 12:20:Cindy Diaz RN) Feel Unsafe Going Home: No (07/29/2016 12:20:Cindy Diaz RN) Addt'l Observ Indicating Abuse: No (07/29/2016 12:20:Cindy Diaz RN) Reason Unable to Complete Screen: N/A, Screen Completed (07/29/2016 12:20:Cindy Diaz RN) Considered Personal Harm/Suicide: No (07/29/2016 12:20:Cindy Diaz RN) NUTRITIONAL/FUNCTIONAL SCREENING Problem with Appetite >5 Days: No (07/29/2016 12:20:Cindy Diaz RN) Chew/Swallow Difficulties: No (07/29/2016 12:20:Cindy Diaz RN) Inappropriate Wt Gain/Loss: No (07/29/2016 12:20:Cindy Diaz RN) Presence Skin Breakdown/Ulcer: No (07/29/2016 12:20:Cindy Diaz RN) Special Diet: No (07/29/2016 12:20:Cindy Diaz RN) Pt Requests Strickler Attendant Visit: No (07/29/2016 12:20:Cindy Diaz RN) Hx of Any of the Following?: N/A (07/29/2016 12:20:Cindy Diaz RN) New Diagnosis of: N/A (07/29/2016 12:20:Cindy Diaz RN) Requires Assist w/Ambulation: No (07/29/2016 12:20:Cindy Diaz RN) Uses Assist Device to Ambulate: No (07/29/2016 12:20:Cindy Diaz RN) Pt Requires Help w/ADL's: No (07/29/2016 12:20:Cindy Diaz RN)
--- NOTE | 2016-07-31 06:01 | L&D General Admission ---
General Admit Datetime Report Generated by CPN: 07/31/2016 06:00 INFORMATION Patient Age: 30 (07/24/2016 15:12:QS system process) EDC: 07/21/2016 00:00 (07/24/2016 15:34:Brianna Pimentel RN) : 2 (07/24/2016 15:34:Cindy Diaz RN) Para: 1 (07/24/2016 15:34:Cindy Diaz RN) Term: 1 (07/24/2016 15:34:Cindy Diaz RN) : 0 (07/24/2016 15:34:Cindy Diaz RN) Spontaneous Abortions: 0 (07/24/2016 15:34:Cindy Diaz RN) Induced Abortions: 0 (07/24/2016 15:34:Cindy Diaz RN) Livin (07/24/2016 15:34:Cindy Diaz RN) Cesareans: 0 (07/24/2016 15:34:Cindy Diaz RN) VBACs: 0 (07/24/2016 15:34:Cindy Diaz RN) Ectopic: 0 (07/24/2016 15:34:Cindy Diaz RN) Multiple Births: 0 (07/24/2016 15:34:Cindy Diaz RN) Baby, Number in Womb: 1 (07/26/2016 18:20:Adrianna Mackay RNKirby) CARE Primary Thread Singer: [facility] (07/24/2016 15:34:Cindy Diaz RN) Month of 1st Visit: 01/2016 (07/24/2016 15:34:Cindy Diaz RN) Adequate Care: No (07/24/2016 15:34:Cindy Diaz RN) Height (in): 64 (07/30/2016 11:04:QS system process) ALLERGIES Medication Allergy: No (07/24/2016 15:34:Cindy Diaz RN) Medication Allergies: No Known Allergies (07/29/2016) (07/29/2016 19:46:QS system process) Latex Allergy: No Latex Allergies (07/24/2016 15:34:Cindy Diaz RN) Food Allergies: N/A (07/24/2016 15:34:Cindy Diaz RN) Environmental Allergies: N/A (07/24/2016 15:34:Cindy Diaz RN) COMMUNICATION Primary Language: Yemeni (07/24/2016 15:34:Brianna Pimentel RN) Medical Tx Preferred Language: Yemeni (07/24/2016 15:34:BHARTI Escobar) Syriac Communication Ability: No understanding, PRELIMINARY SCHOOL PSYCHOLOGIST needed (07/24/2016 15:34:Brianna Pimentel RN) Communication Barrier(s): Language barrier (07/24/2016 15:34:Brianna Pimentel RN) DEMOGRAPHICS Address: [address] [place] [id number] (07/29/2016 12:46:QS system process) Zipcode: [address] (07/24/2016 15:12:QS system process) Home (07/24/2016 15:12:QS system process) SSN: [id number] (07/24/2016 15:12:QS system process) Next of Kin Name: ELIZABETH MONZON (07/24/2016 15:12:QS system process) Next of Kin (07/29/2016 12:46:QS system process) Next of Kin Relationship: OR (07/24/2016 15:12:QS system process) Date of : 1985 (07/24/2016 15:12:QS system process) Marital Status: Single (07/24/2016 15:12:QS system process) Sex: Female (07/24/2016 15:12:QS system process) Race: Other (07/24/2016 15:12:QS system process) Ethnicity: or (07/24/2016 15:12:QS system process) Methodist: None (07/24/2016 15:12:QS system process) DRUG AND ALCOHOL USE Alcohol: No (07/24/2016 15:34:Cindy Diaz RN) Cigarettes: Never Smoker. [id number] (07/24/2016 15:34:Cindy Diaz RN) Marijuana: No (07/24/2016 15:34:Cindy Diaz RN) Cocaine: No (07/24/2016 15:34:Cindy Diaz RN) Other Illicit Drugs: No (07/24/2016 15:34:Cindy Diaz RN) VACCINE HISTORY Influenza Vaccine: Yes (07/24/2016 15:34:Cindy Diaz RN) Pneumococcal Vaccine: No (07/24/2016 15:34:Cindy Diaz RN) Tetanus Vaccine: Yes (07/24/2016 15:34:Cindy Diaz RN) Tdap Vaccine: Yes (07/24/2016 15:34:Cindy Diaz RN) Hepatitis B Vaccine: Yes (07/24/2016 15:34:Cindy Diaz RN) Steel Pourer: [facility] (07/24/2016 15:34:Cindy Diaz RN) Feeding Preference: Both (07/24/2016 15:34:Cindy Diaz RN) Benefit of Breast Feed Discussed: Yes (07/24/2016 15:34:Cindy Diaz RN) Circumcision: N/A (07/24/2016 15:34:Cindy Diaz RN) Classes Attended: No (07/24/2016 15:34:Cindy Diaz RN) Tubal Ligation: No (07/24/2016 15:34:Cindy Diaz RN) Tubal Authorization Signed: N/A (07/24/2016 15:34:Cindy Diaz RN) Consent: N/A (07/24/2016 15:34:Cindy Diaz RN) Consent Signed: N/A (07/24/2016 15:34:Cindy Diaz RN) Pain Management Plans: Natural; Medications; Epidural (07/24/2016 15:34:Cindy Diaz RN) Plans for Labor and Delivery: None (07/24/2016 15:34:Cindy Diaz RN) Support Person: Elizabeth (07/24/2016 15:34:Cinyd Diaz RN) Support Person Relationship: (07/24/2016 15:34:Cindy Diaz RN) Cultural/Spritual Practice: No (07/24/2016 15:34:Cindy Diaz RN) Spir/Cult Dietary Needs: No (07/24/2016 15:34:Cindy Diaz RN) LIVING SITUATION/DISCHARGE PLAN Living Arrangements: Apartment (07/24/2016 15:34:Cindy Diaz RN) Adequate Access to:: Electric; Heat; Refrigeration; Phone; Transportation (07/24/2016 15:34:Cindy Diaz RN) WIC Program: Yes (07/24/2016 15:34:Cindy Diaz RN) Discharge Documentation Writer Person: Elizabeth (07/24/2016 15:34:Cindy Diaz RN) Person to Help after Discharge: Elizabeth (07/24/2016 15:34:Cindy Diaz RN) Currently Using Commun Resources: No (07/24/2016 15:34:Cindy Diaz RN) Outside Agency/Retort Load Expediter: No (07/24/2016 15:34:Cindy Diaz RN) Adoption Requested: No (07/24/2016 15:34:Cindy Diaz RN) Pt Contact w/infant Post : N/A (07/24/2016 15:34:Cindy Diaz RN) LABS Blood Type: B Positive (07/24/2016 15:34:Brianna Pimentel RN) Antibody Screen: negative (07/24/2016 15:34:Brianna Pimentel RN) Rho(G) this : Not Applicable (07/24/2016 15:34:Cindy Diaz RN) Hemoglobin: 11.0 L (07/30/2016 07:24:QS system process) Hematocrit: 33.1 L (07/30/2016 07:24:QS system process) MCV: 83 (07/30/2016 07:24:QS system process) Group Beta Strep: positive (07/24/2016 15:34:Brianna Pimentel RN) Chlamydia: Negative (07/24/2016 15:34:Brianna Pimentel RN) RPR/VDRL: Nonreactive (07/24/2016 15:34:Brianna Pimentel RN) HIV Exposure Test: Negative (07/24/2016 15:34:Cindy Diaz RN) HIV Results: non reactive (07/24/2016 15:34:Brianna Pimentel RN) Hepatitis B: Negative (07/24/2016 15:34:Brianna Pimentel RN) Rubella: Immune (07/24/2016 15:34:Brianna Pimentel RN) Varicella: Non Susceptible (07/24/2016 15:34:Brianna Pimentel RN) OB/PREVIOUS HISTORY History of Previous : No (07/24/2016 15:34:Cindy Diaz RN) History of Gestational Diabetes: No (07/24/2016 15:34:Cindy Diaz RN) History of PIH: No (07/24/2016 15:34:Cindy Diaz RN) History of Incompetent Cervix: No (07/24/2016 15:34:Cindy Diaz RN) History of Placenta Previa/Abrup: No (07/24/2016 15:34:Cindy Diaz RN) History of Macrosomia: No (07/24/2016 15:34:Cindy Diaz RN) History of IUGR: No (07/24/2016 15:34:Cindy Diaz RN) History of Hemorrhage: No (07/24/2016 15:34:Cindy Diaz RN) History of Loss/Stillborn: No (07/24/2016 15:34:Cindy Diaz RN) History of : No (07/24/2016 15:34:Cindy Diaz RN) History of D (Rh) Sensitization: No (07/24/2016 15:34:Cindy Diaz RN) History Recurrent Loss/Stillborn: No (07/24/2016 15:34:Cindy Diaz RN) History Depression/PP Depression: No (07/24/2016 15:34:Cindy Diaz RN) History of Uterine Anomaly/MIKE: No (07/24/2016 15:34:Cindy Diaz RN) History of Infertility: No (07/24/2016 15:34:Cindy Diaz RN) History of ART Treatment: No (07/24/2016 15:34:Cindy Diaz RN) History of MIKE: No (07/24/2016 15:34:Cindy Diaz RN) MEDICAL HISTORY Med Hx Diabetes: No (07/24/2016 15:34:Cindy Diaz RN) Med Hx Hypertension: No (07/24/2016 15:34:Cindy Diaz RN) Med Hx Heart Disease: No (07/24/2016 15:34:Cindy Diaz RN) Med Hx Autoimmune Disorder: No (07/24/2016 15:34:Cindy Diaz RN) Med Hx Kidney Disease/UTI: No (07/24/2016 15:34:Cindy Diaz RN) Med Hx Neurologic/Epilepsy: No (07/24/2016 15:34:Cindy Daiz RN) Med Hx Psychiatric Disorders: No (07/24/2016 15:34:Cindy Diaz RN) Med Hx Hepatitis/Liver Disease: No (07/24/2016 15:34:Cindy Diaz RN) Med Hx Varicosities/Phlebitis: No (07/24/2016 15:34:Cindy Diaz RN) Med Hx Thyroid Dysfunction: No (07/24/2016 15:34:Cindy Diaz RN) Med Hx Trauma/Violence: No (07/24/2016 15:34:Cindy Diaz RN) Med Hx Blood Transfusion: No (07/24/2016 15:34:Cindy Diaz RN) Med Hx Pulmonary (Asthma,TB): No (07/24/2016 15:34:Cindy Diaz RN) Med Hx Breast: No (07/24/2016 15:34:Cindy Diaz RN) Med Hx CHEF ASSISTANT Surgery: No (07/24/2016 15:34:Cindy Diaz RN) Med Hx Hospitalization/Surgery: No (07/24/2016 15:34:Cindy Diaz RN) Med Hx Anesthetic Complications: No (07/24/2016 15:34:Cindy Diaz RN) Med Hx Abnormal Pap Smear: No (07/24/2016 15:34:Cindy Diaz RN) Other Medical Diseases: No (07/24/2016 15:34:Cindy Diaz RN) Med Hx Significant Family Hx: No (07/24/2016 15:34:Cindy Diaz RN) INFECTIOUS HISTORY Inf Hx Gonorrhea: No (07/24/2016 15:34:Cindy Diaz RN) Inf Hx Chlamydia: No (07/24/2016 15:34:Cindy Diaz RN) Inf Hx Syphilis: No (07/24/2016 15:34:Cindy Diaz RN) Inf Hx HIV/AIDS: No (07/24/2016 15:34:Cindy Diaz RN) Inf Hx Human Papilloma Virus: No (07/24/2016 15:34:Cindy Diaz RN) Inf Hx Pt/Partner Genital Herpes: No (07/24/2016 15:34:Cindy Diaz RN) Inf Hx Tuberculosis/Exposure: No (07/24/2016 15:34:Cindy Diaz RN) Inf Hx Hepatitis B,C: No (07/24/2016 15:34:Cindy Diaz RN) Inf Hx Rash or Viral Illness: No (07/24/2016 15:34:Cindy Diaz RN) GENETIC HISTORY Gen Hx Age >=35 at KRISTIN: No (07/24/2016 15:34:Cindy Diaz RN) Gen Hx Thalassemia: No (07/24/2016 15:34:Cindy Diaz RN) Gen Hx Congenital Heart Defect: No (07/24/2016 15:34:Cindy Diaz RN) Gen Hx Neural Tube Defect: No (07/24/2016 15:34:Cindy Diaz RN) Gen Hx Down's Syndrome: No (07/24/2016 15:34:Cindy Diaz RN) Gen Hx Brett-Sachs: No (07/24/2016 15:34:Cindy Diaz RN) Gen Hx Kath: No (07/24/2016 15:34:Cindy Diaz RN) Gen Hx Familial Dysautonomia: No (07/24/2016 15:34:Cindy Diaz RN) Gen Hx Sickle Cell Disease/Trait: No (07/24/2016 15:34:Cindy Diaz RN) Gen Hx Hemophilia/Blood Disorder: No (07/24/2016 15:34:Cindy Diaz RN) Gen Hx Muscular Dystrophy: No (07/24/2016 15:34:Cindy Diaz RN) Gen Hx Cystic Fibrosis: No (07/24/2016 15:34:Cindy Diaz RN) Gen Hx Huntingtons Chorea: No (07/24/2016 15:34:Cindy Diaz RN) Gen Hx Mental Retardation/Autism: No (07/24/2016 15:34:Cindy Diaz RN) Gen Hx Tested for Fragile X: No (07/24/2016 15:34:Cindy Diaz RN) Gen Hx Other Inher/Chromosomal: No (07/24/2016 15:34:Cindy Diaz RN) Gen Hx Maternal Metabolic DO: No (07/24/2016 15:34:Cindy Diaz RN) Gen Hx Pt Father or FOB Defect: No (07/24/2016 15:34:Cindy Diaz RN) Gen Hx Other Genetic History: No (07/24/2016 15:34:Cindy Diaz RN) Gen Hx Drugs/Meds since LMP: No (07/24/2016 15:34:Cindy Diaz RN)
--- NOTE | 2016-07-31 06:16 | L&D Care Plan ---
LD CARE PLANS Datetime Report Generated by CPN: 07/31/2016 06:15 Datetime: 07/29/2016 11:43 State: Risk For (Christy Sandoval RN) Related To: Labor and Delivery Process (Christy Sandoval RN) Goal(s): Patients Pain will be Assessed and Managed; Patient will Verbalize Adequate Relief of Pain or the Ability to [place] with Current Pain (Christy Sandoval RN) Interventions: Assess Pain Severity on Scale of 0 (None) to 5 (Severe); Assess Type, Location and Intensity of Pain Each Time Client Reports Discomfort and Notify Provider if Unusal Pain Develops; Encourage Proper Breathing and Relaxation Techniques; Offer Alternatives Such as Repositioning, Calm Environment, Massages, Diversional Activities, Ice Pack, Splinting, and Ambulation (Christy Sandoval RN) Outcome: Patient will Report Absence or Relief of Pain Consistent with Established Pain Goal (Christy Sandoval RN) Status: Ongoing (Christy Sandoval RN) Outcome: Patient will have a Decrease in Signs and Symptoms of Discomfort (Christy Sandoval RN) Status: Ongoing (Christy Sandoval RN) State: Not Applicable (Christy Sandoval RN) State: Risk For (Christy Sandoval RN) Related To: Labor and Delivery Process; Treatment and Procedures; Impending Alterations in Family Dynamics; Feeding and Care; Community Resources and Available Support Mechanisms (Christy Sandoval RN) Goal(s): Patient will Accurately Verbalize Understanding of Plan of Care and Treatment; Patient and Family will Accurately Verbalize Understanding of the Disease Process (Christy Sandoval RN) Interventions: Assess Motivation and Willingness of Patient/Family to Learn; Assess Preferred Learning Mode: One to One Instruction, Reading, Videos, Group Discussion or Demonstration; Assess Barriers to Learning: Pain, Emotional State, Language Barrier, Cognitive Impairment, Visual or Hearing Deficits; Assess Patient and Family Knowledge of Disease Process, Medications and Treatment (Christy Sandoval RN) Outcome: Patient and Family will Verbalize Understanding of Condition, Treatment and Signs and Symptoms to Report (Christy Sandoval RN) Status: Ongoing (Christy Sandoval RN) Outcome: Patient will Identify Perceived Learning Needs and Express Motivation to Learn (Christy Sandoval RN) Status: Ongoing (Christy Sandoval RN) State: Risk For (Christy Sandoval RN) Related To: Altered Tissue Integrity (Christy Sandoval RN) Goal(s): The Patient will be Free of Infection, Vital Signs Stable and Lab Work within Normal Parameters (Christy Sandoval RN) Interventions: Instruct and Reinforce Proper Handwashing, Hygiene, and Care Techniques to Patient and Family; Monitor Vital Signs; Monitor Patient for the Following Signs of Infection: Fever, Abdominal Tenderness, Unusual Discharge; Monitor Aminiotic Fluid, Urine and Lochia for Color and Odor (Christy Sandoval, MYRA) Outcome: Patient will Remain Free of Infection (Christy Sandoval RN) Status: Ongoing (Christy Sandoval RN) Outcome: Infection will be Recognized Early to Allow for Prompt Treatment (Christy Sandoval RN) Status: Ongoing (Christy Sandoval RN) State: Not Applicable (Christy Sandoval, MYRA) State: Not Applicable (Christy Sandoval RN) State: Risk For (Christy Sandoval RN) Related To: Vaginal Delivery (Christy Sandoval RN) Goal(s): Patient will Maintain Optimal Skin Integrity, Free of Breakdown, Injury or Infection (Christy Sandoval, MYRA) Interventions: Complete Screening for Pressure Ulcer Risk and Initiate Protocol per Hospital Policy; Monitor Site of Skin Impairment for Color Changes, Redness, Swelling, Warmth, Pain or Other Signs of Infection; Encourage and Assist with Position Changes; Monitor Patient's Mobility Status (Christy Sandoval RN) Outcome: Patient will not have Evidence of Injury Such as Skin Breakdown, Scrapes, Cuts, or Bruising (Christy Sandoval RN) Status: Ongoing (Christy Sandoval RN) Outcome: Patient will Report Any Altered Sensation or Pain at Site of Skin Impairment (Christy Sandoval RN) Status: Ongoing (Christy Sandoval RN) State: Not Applicable (Christy Sandoval RN) State: Not Applicable (Christy Sandoval RN) State: Not Applicable (Christy Sandoval RN) Datetime: 07/29/2016 11:42 State: Risk For (Christy Sandoval RN) Related To: Labor and Delivery Process (Christy Sandoval RN) Goal(s): Patients Pain will be Assessed and Managed; Patient will Verbalize Adequate Relief of Pain or the Ability to [place] with Current Pain (Christy Sandoval RN) Interventions: Assess Pain Severity on Scale of 0 (None) to 5 (Severe); Assess Type, Location and Intensity of Pain Each Time Client Reports Discomfort and Notify Provider if Unusal Pain Develops; Encourage Proper Breathing and Relaxation Techniques; Offer Alternatives Such as Repositioning, Calm Environment, Massages, Diversional Activities, Ice Pack, Splinting, and Ambulation (Christy Sandoval RN) Outcome: Patient will Report Absence or Relief of Pain Consistent with Established Pain Goal (Christy Sandoval RN) Status: Ongoing (Christy Sandoval RN) Outcome: Patient will have a Decrease in Signs and Symptoms of Discomfort (Christy Sandoval RN) Status: Ongoing (Christy Sandoval RN) State: Not Applicable (Christy Sandoval RN) State: Risk For (Christy Sandoval RN) Related To: Labor and Delivery Process; Treatment and Procedures; Impending Alterations in Family Dynamics; Feeding and Care; Community Resources and Available Support Mechanisms (Christy Sandoval RN) Goal(s): Patient will Accurately Verbalize Understanding of Plan of Care and Treatment; Patient and Family will Accurately Verbalize Understanding of the Disease Process (Christy Sandoval RN) Interventions: Assess Motivation and Willingness of Patient/Family to Learn; Assess Preferred Learning Mode: One to One Instruction, Reading, Videos, Group Discussion or Demonstration; Assess Barriers to Learning: Pain, Emotional State, Language Barrier, Cognitive Impairment, Visual or Hearing Deficits; Assess Patient and Family Knowledge of Disease Process, Medications and Treatment (Christy Sandoval RN) Outcome: Patient and Family will Verbalize Understanding of Condition, Treatment and Signs and Symptoms to Report (Christy Sandoval RN) Status: Ongoing (Christy Sandoval RN) Outcome: Patient will Identify Perceived Learning Needs and Express Motivation to Learn (Christy Sandoval RN) Status: Ongoing (Christy Sandoval RN) State: Risk For (Christy Sandoval RN) Related To: Altered Tissue Integrity (Christy Sandoval RN) Goal(s): The Patient will be Free of Infection, Vital Signs Stable and Lab Work within Normal Parameters (Christy Sandoval RN) Interventions: Instruct and Reinforce Proper Handwashing, Hygiene, and Care Techniques to Patient and Family; Monitor Vital Signs; Monitor Patient for the Following Signs of Infection: Fever, Abdominal Tenderness, Unusual Discharge; Monitor Aminiotic Fluid, Urine and Lochia for Color and Odor (Christy Sandoval, MYRA) Outcome: Patient will Remain Free of Infection (Christy Sandoval RN) Status: Ongoing (Christy Sandoval, MYRA) Outcome: Infection will be Recognized Early to Allow for Prompt Treatment (Christy Sandoval RN) Status: Ongoing (Christy Sandoval RN) State: Not Applicable (Christy Sandoval RN) State: Not Applicable (Christy Sandoval RN) State: Risk For (Christy Sandoval RN) Related To: Vaginal Delivery (Christy Sandoval RN) Goal(s): Patient will Maintain Optimal Skin Integrity, Free of Breakdown, Injury or Infection (Christy Sandoval RN) Interventions: Complete Screening for Pressure Ulcer Risk and Initiate Protocol per Hospital Policy; Monitor Site of Skin Impairment for Color Changes, Redness, Swelling, Warmth, Pain or Other Signs of Infection; Encourage and Assist with Position Changes; Monitor Patient's Mobility Status (Christy Sandoval RN) Outcome: Patient will not have Evidence of Injury Such as Skin Breakdown, Scrapes, Cuts, or Bruising (Christy Sandoval RN) Status: Ongoing (Christy Sandoval RN) Outcome: Patient will Report Any Altered Sensation or Pain at Site of Skin Impairment (Christy Sandoval RN) Status: Ongoing (Christy Sandoval RN) State: Not Applicable (Christy Sandoval RN) State: Not Applicable (Christy Sandoval RN) State: Not Applicable (Christy Sandoval RN)
[2016-07-31 08:57] VITALS: BP 116/70
[2016-07-31] MEDS: FERROUS SULFATE 325 MG TABLET PO SCH ×2 (09:34→17:46)
[2016-07-31] MEDS: DOCUSATE SODIUM 100 MG CAPSULE PO SCH ×2 (09:34→17:46)
[2016-07-31] MEDS: PRENATAL VITAMIN W-O CA NO5/FE FUMARATE/FA CAPSULE PO SCH (09:34)
[2016-07-31] MEDS: SENNOSIDES/DOCUSATE 8.6-50 MG 1 EACH TABLET PO SCH (09:34)
--- NOTE | 2016-07-31 10:57 | PDOC PROGRESS REPORT ---
Subjective-OB Subjective: Post Delivery Day: 30 year old. Denies any needs at this time equatorial guinean speaking pt s/p vaginal delivery pt offers no complaints ff@u-2 mild lochia rtc 4 weeks/ Physical Exam (OB) Vital Signs: Temp Pulse Resp BP Pulse Ox 98.1 F 82 18 116/70 96 07/31/16 08:01 07/31/16 08:01 07/31/16 08:01 07/31/16 07:40 07/31/16 08:01 Intake & Output 07/30/16 07/31/16 08/01/16 06:59 06:59 06:59 Intake Total 400 Balance 400 Weight 111.95 kg - PIH/Pre-Eclampsia Clonus: Negative - Lochia Lochia Amount: Small 10-25 ml Lochia Color: Rubra/Red - Abdomen Description: Soft, Round Hernia Present: No Fundal Description: Firm, Midline Fundal Height: u/u - u/2 Objective-Diagnostic Laboratory: 07/30/16 07:24
--- NOTE | 2016-07-31 11:03 | PDOC DISCHARGE SUMMARY ---
Final Diagnosis Discharge Date: 07/31/16 - Final Diagnosis (1) Delivery normal Is this a current diagnosis for this admission?: Yes (2) Obesity Is this a current diagnosis for this admission?: Yes (3) Is this a current diagnosis for this admission?: Yes Discharge Data - Discharge Medication Home Medications: Vit/Iron Fumarate/FA [ Tablet] 1 tab PO DAILY 07/24/16 Ibuprofen [Motrin 800 mg Tablet] 800 mg PO Q8 #90 tablet 07/31/16 Reason(s) for Admission: Induction of Labor Procedures: None Intrapartum Procedure(s): Spontaneous Vaginal Delivery Complication(s): Laceration-Perineal Laceration-Degree: 2nd - Data Baby 1 Female at 1 minute: 8 at 5 minutes: 9 Weight: 5085 kg Home with Mother: No Complications: Yes - tachypnea, IV - Diagnosis Test Laboratory: Temp Pulse Resp BP Pulse Ox 98.1 F 82 18 116/70 96 07/31/16 08:01 07/31/16 08:01 07/31/16 08:01 07/31/16 07:40 07/31/16 08:01 07/29/16 07/29/16 07/30/16 11:30 12:32 07:24 RBC 4.47 3.99 Hgb 12.1 11.0 L Hct 36.8 33.1 L Urine Opiates Screen NEGATIVE - Discharge information/Instructions Discharge Activity: Activity As Tolerated, No Lifting Over 10 Pounds, Pelvic Rest, No tub bath Discharge Diet: Regular Disposition: HOME, SELF-CARE Follow up with: [facility] in: 4
== END 2016-07-31 18:52 | disposition home or self-care (01) | DRG 775 ==
LOC: LC 11:10 → LR 12:08 → UNDOADMIN 12:08 → LR 12:34 → 2S 22:50
PROVIDERS: ADMIT Student in an Organized Health Care Education/Training Program; ATTEND Student in an Organized Health Care Education/Training Program
PROC: 10E0XZZ Delivery of Products of Conception, External Approach (ICD-10-PCS; principal; 2016-07-29)
PROC: 0KQM0ZZ Repair Perineum Muscle, Open Approach (ICD-10-PCS; 2016-07-29)
PROC: 4A1HXCZ Monitoring of Products of Conception, Cardiac Rate, External Approach (ICD-10-PCS; 2016-07-29)
DX: O48.0 Post-term pregnancy (principal); Z68.41 Body mass index [BMI] 40.0-44.9, adult; O70.1 Second degree perineal laceration during delivery; O99.824 Streptococcus B carrier state complicating childbirth; Z3A.41 41 weeks gestation of pregnancy; O99.214 Obesity complicating childbirth; E66.9 Obesity, unspecified; Z37.0 Single live birth
CPT/HCPCS: 36415; 80307; 81005; 85025; 85027; 86592; 86850; 86900; 86901; 94760; J0690; J2300; J2540; J2590; J3010; J3490

== ENCOUNTER → 2018-07-09 | Outpatient (CLI) | payer SELFPAY ==
--- NOTE | 2018-07-09 15:13 | RADIOLOGY REPORT (SQ) ---
EXAM DESCRIPTION: U/S [id number] TRNABD 1GES W/ODOP COMPLETED DATE/TIME: 07/09/2018 2:44 pm REASON FOR STUDY: ENCOUNTER FOR , FIRST TRIMESTER Z34.81 ENCOUNTER FOR SUPRVSN OF NORMAL P REGNANCY, FIRST TRIM COMPARISON: No previous this TECHNIQUE: Transabdominal static and realtime grayscale images acquired of the pelvis. Additional se lected spectral and color Doppler images recorded. All images stored on PACs. bHCG: Unknown CLINICAL DATES: Unknown LIMITATIONS: None. FINDINGS: FETUS: Single Living intrauterine . ULTRASOUND EGA: 12 weeks 0 days ULTRASOUND KRISTIN: 01/20/2019 EFW: Not applicable less than 20 weeks. CRL: 5.5 cm FHR: 165 beats per minute. SURVEY: Too early to assess. AMNIOTIC FLUID: Adequate amount. PLACENTA: Developing anteriorly SUBCHORIONIC BLEED: Yes SIZE OF BLEED: 4 x 0.5 x 1 cm along the dorsal aspect of the lower uterine segment UTERUS: No masses. No anomalies. Uterus 17 x 11 x 7 cm CERVICAL LENGTH: Closed, 4 cm in length RIGHT ADNEXA: Ovary not identified due to poor acoustical window. No adnexal free fluid. No adnexal masses. LEFT ADNEXA: 3.5 x 2 x 2.1 cm left ovary with a 2 cm corpus luteal cyst No adnexal free fluid. No adnexal masses. FREE FLUID: None. OTHER: No other significant finding. IMPRESSION: LIVING INTRAUTERINE . EGA 12 weeks 0 days Moderate size subchorionic hemorrhage Trimester of : First - 0 to 13 weeks. TECHNICAL DOCUMENTATION: JOB ID: [id number]- All Rights Reserved rev Reading location - IP/workstation name: [facility]
== END ==
LOC: RAD 14:02
PROVIDERS: ATTEND Nurse Practitioner
DX: Z34.81 Encounter for supervision of other normal pregnancy, first trimester (principal)
CPT/HCPCS: 76801

== ENCOUNTER → 2018-09-04 | Outpatient (CLI) | payer SELFPAY ==
--- NOTE | 2018-09-04 16:35 | RADIOLOGY REPORT (SQ) ---
EXAM DESCRIPTION: U/S OB 14+ TRNABD 1GES W/O DOP COMPLETED DATE/TIME: 09/04/2018 4:13 pm REASON FOR STUDY: Z34.82 ENCOUNTER FOR SUPRVSN OF NORMAL , SECOND TRIMESTER Z34.82 ENCOUNT ER FOR SUPRVSN OF NORMAL , SECOND TRI COMPARISON: 07/09/2018 TECHNIQUE: Static and Dynamic grayscale imaging performed of gravid uterus using transabdominal appr oach. Additional selected color Doppler and spectral images recorded. All stored on PACS. LIMITATIONS: None. FINDINGS: FETUSES SEEN:1 EGA: 20 weeks 4 days Calculated using BPD,FL,HC,AC documented on images. No discrepancy with clinica l dates. KRISTIN: 01/18/2019 EFW: 399 grams PERCENTILE: Not applicable. Fetus less than or equal to 20 weeks gestation. VIOLA: 7.1 cm PLACENTA: Anterior. PRESENTATION: Cephalic. ANATOMY: HEART RATE: 144 beats per minute. FOUR CHAMBER HEART: Visualized. THREE VESSEL CORD: Yes. CORD INSERTION: Visualized. KIDNEYS AND BLADDER: Visualized. Appear normal. STOMACH: Visualized. Appears normal. SPINE: Normal as visualized. BRAIN AND LATERAL VENTRICLES: Visualized. Appear normal. OTHER: No other significant finding. MATERNAL ADNEXA: Maternal ovaries not visualized. CERVICAL LENGTH: 5.1 cm. Closed. OTHER: No other significant finding. IMPRESSION: LIVING INTRAUTERINE . ESTIMATED GESTATIONAL AGE 20 weeks 4 days NO VISUALIZED ANOMALIES. Trimester of : Second trimester - 13 weeks 1 day to 27 weeks 6 days. TECHNICAL DOCUMENTATION: JOB ID: [id number] [employer]- All Rights Reserved Reading location - IP/workstation name: [email or web address]
== END ==
LOC: RAD 15:03
PROVIDERS: ATTEND Midwife
DX: Z34.82 Encounter for supervision of other normal pregnancy, second trimester (principal)
CPT/HCPCS: 76805

== ENCOUNTER 2019-01-18 04:23 | Inpatient (IN) | payer MEDICAID, OTHER ==
[2019-01-18] MEDS ORDERED: OXYTOCIN 10 UNIT/ML VIAL ONE (04:52)
[2019-01-18] MEDS ORDERED: LIDOCAINE 1% INJ-PF (10 MG/ML) 30 ML SDV ONE (04:52)
[2019-01-18] MEDS ORDERED: MISOPROSTOL 0.2 MG TABLET ONE (04:52)
[2019-01-18] MEDS ORDERED: OXYTOCIN/NORMAL SALINE 20 UNIT/1,000 ML RTUINJ ONE (04:52)
[2019-01-18] MEDS ORDERED: RINGERS SOLUTION,LACTATED 1,000 ML IV ONE (05:01)
[2019-01-18] MEDS ORDERED: RINGERS SOLUTION,LACTATED 1,000 ML IV PRN (05:01)
--- NOTE | 2019-01-18 05:08 | Admission Physical ---
Datetime Report Generated by CPN: 01/18/2019 05:07 CURRENT ADMISSION Chief Complaint: Uterine Contractions; Suspected Ruptured Membranes Indication for Induction: Not Applicable Admit Impression : Term, Intrauterine ; Active Labor; Ruptured Membranes Admit Plan: Admit to Unit; Initiate Labor Protocol ALLERGIES Medication Allergies: No Known Allergies (07/29/2016) OBSTETRICAL HISTORY EDC: 01/21/2019 00:00 : 3 PHYSICAL EXAM General: Normal HEENT: Normal Neurologic: Normal Thyroid: Deferred Heart: Normal Lungs: Normal Breast: Deferred Back: Normal Abdomen: Normal Genitourinary Exam: Normal Extremities: Normal DTRs: Normal Pelvic Type: Adequate Vital Signs: Reviewed VAGINAL EXAM Dilatation: 8 Effacement: 100 Station: 0 Contraction Comments: q 2-3 MEMBRANES Membranes: Ruptured Amniotic Fluid Color: Clear FETUS A EGA: 39.4 Monitoring: External US FHR- Baseline: 125 Variability: Moderate 6-25bpm Accelerations: 15X15 Decelerations: None FHR Category: Category I Presentation: Vertex Admit Comment: 33yo at 39+4ega presents for active labor. SROM at 0315. non czech speaking. GBS negative. No h/o HSV. RH positive. 8cm in active labor. Anticipate . INFORMED CONSENT Informed Consent Obtained: Vaginal Delivery; Risks, Benefits and Alternatives Discussed Signature: with User ID: [email or web address]
[2019-01-18] MEDS ORDERED: NALBUPHINE HCL INJ 10 MG/1 ML AMPULE ONE (05:18)
[2019-01-18] MEDS ORDERED: CEFAZOLIN INJ 1 GM VIAL ONE (05:25)
[2019-01-18] MEDS ORDERED: DIPHENHYDRAMINE HCL 25 MG CAPSULE PO PRN (05:45)
[2019-01-18] MEDS ORDERED: ACETAMINOPHEN WITH CODEINE #3 TABLET PO PRN ×2 (05:45)
[2019-01-18] MEDS ORDERED: PROMETHAZINE HCL 25 MG TABLET PO PRN (05:45)
[2019-01-18] MEDS ORDERED: PSEUDOEPHEDRINE HCL 30 MG TABLET PO PRN (05:45)
[2019-01-18] MEDS ORDERED: ZOLPIDEM TARTRATE 5 MG TABLET PO PRN (05:45)
[2019-01-18] MEDS ORDERED: PROMETHAZINE HCL 25 MG SUPP.RECT PR PRN (05:45)
[2019-01-18] MEDS ORDERED: BENZOCAINE/MENTHOL AEROSOL SPRAY 56 ML TOP PRN (05:45)
[2019-01-18] MEDS ORDERED: MEASLES,MUMPS&RUBELLA VACC/PF 0.5 ML VIAL SUBCUT PRN (05:45)
[2019-01-18] MEDS ORDERED: MAGNESIUM HYDROXIDE SUSP 30 ML UDCUP PO PRN (05:45)
[2019-01-18] MEDS ORDERED: NA PHOS,M-B/NA PHOS,DI-BA (ADULT) 133 ML ENEMA PR PRN (05:45)
[2019-01-18] MEDS ORDERED: DIBUCAINE 1% OINTMENT 56 GM TP PRN (05:45)
[2019-01-18] MEDS ORDERED: OXYTOCIN/NORMAL SALINE 20 UNIT/1,000 ML RTUINJ IV PRN (05:45)
[2019-01-18] MEDS ORDERED: PROMETHAZINE HCL INJ 25 MG/1 ML VIAL IV PRN (05:45)
[2019-01-18] MEDS ORDERED: DIPH/PERTUSS(ACELL)/TETANUS VAC/PF 0.5 ML SYR (>=10YO) IM PRN (05:45)
[2019-01-18] MEDS ORDERED: ACETAMINOPHEN 325 MG TABLET PO PRN (05:45)
[2019-01-18] MEDS ORDERED: GLYCERIN/WITCH HAZEL LEAF 1 EACH MED..WIPE TP PRN (05:45)
[2019-01-18 06:10] LABS: APPEARANCE,URINE CLEAR; BILIRUBIN,URINE NEGATIVE (NEGATIVE); COLOR,URINE YELLOW; GLUCOSE, URINE NEGATIVE (NEGATIVE); KETONES,URINE NEGATIVE (NEGATIVE); LEUKOCYTE ESTERASE,URINE NEGATIVE (NEGATIVE); NITRITE,URINE NEGATIVE (NEGATIVE); PROTEIN,URINE NEGATIVE (NEGATIVE); UROBILINOGEN,URINE NEGATIVE mg/dL (<2.0)
[2019-01-18 06:24] LABS: URINE AMPHETAMINES SCREEN NEGATIVE; URINE BARBITURATES SCREEN NEGATIVE; URINE BENZODIAZEPINES SCREEN NEGATIVE; URINE COCAINE SCREEN NEGATIVE; URINE MARIJUANA (THC) SCREEN NEGATIVE; URINE METHADONE SCREEN NEGATIVE; URINE PHENCYCLIDINE SCREEN NEGATIVE
[2019-01-18 06:35] LABS: ABSOLUTE LYMPHOCYTES (AUTO) 1.4 10^3/uL (0.5-4.7); ABSOLUTE MONOCYTES (AUTO) 0.6 10^3/uL (0.1-1.4); BASOPHILS % (AUTO) 0.1 % (0-2); EOSINOPHILS % (AUTO) 0.2 % (0-6); HEMATOCRIT 35.9 % (36.0-47.0); LYMPHOCYTES % (AUTO) 15.3 % (13-45); MEAN CORPUSCULAR HEMOGLOBIN 27.3 pg (27.0-33.4); MEAN CORPUSCULAR HGB CONC 33.3 g/dL (32.0-36.0); MEAN CORPUSCULAR VOLUME 82 fl (80-97); MONOCYTES % (AUTO) 6.2 % (3-13); PLATELET COUNT 171 10^3/uL (150-450); RED BLOOD COUNT 4.38 10^6/uL (3.72-5.28); RED CELL DISTRIBUTION WIDTH 16.5 % (11.5-14.0); SEGMENTED NEUTROPHILS % (AUTO) 78.2 % (42-78); TOTAL CELLS COUNTED % (AUTO) 100 %
--- NOTE | 2019-01-18 07:23 | Delivery Summary ---
Del Sum A-C Datetime Report Generated by CPN: 01/18/2019 07:23 DELIVERY PERSONNEL DELIVERY PERSONNEL: [id number] Delivery Doctor:: Maureen Mckeon MD Labor and Delivery Nurse:: Julieta Staples RNquilt stuffer Nurse:: Rubi Lin RN Nursery Nurse:: [place] Hendrix RN Nursery Nurse:: Amaris Alexandre RN Nursing Unit Coordinator/RADIOLOGY INTERVENTIONAL PHYSICIAN: Johanne Berman, ST MATERNAL INFORMATION Delivery Anesthesia: Local Medications After Delivery: Pitocin Drip 20 Units/1000ml NSS Estimated Blood Loss (ml): 200 Delivery QBL: 200 Delivery QBL Comment: 200 Maternal Complications: Precipitous Labor (<3hrs) Provider Comments: VFI delivered in [place] presentation. No nuchal cord but body and left foot cord. Shoulders and body delivered without difficulty. Cord doubly clamped and cut and infant to maternal abd for NRP. Placenta delivered intact spontaneously but with trailing membranes which were removed on crudee. Will give ancef for 24 hours to prevent infection. 2nd degree perineal laceration repaired in usual fashion. FF at U. Good hemostasis. Mother and baby stable upon provider leaving the room. LABOR SUMMARY EDC: 01/21/2019 00:00 No. Babies in Womb: 1 Attempted: No Labor Anesthesia: None LABOR INFORMATION Reason for Induction: Not Applicable Onset of Labor: 01/18/2019 03:15 Complete Dilatation: 01/18/2019 05:09 Oxytocin: N/A Group B Beta Strep: Negative Steroids Given: None Reason Steroids Not Administered: Not Applicable MEMBRANES Membranes Rupture Method: Spontaneous Rupture of Membranes: 01/18/2019 06:15 Length of Rupture (hr): -1.03 Amniotic Fluid Color: Light Meconium Amniotic Fluid Amount: Small Amniotic Fluid Odor: Normal STAGES OF LABOR Stage 1 hr: 1 Stage 1 min: 54 Stage 2 hr: 0 Stage 2 min: 4 Stage 3 hr: 0 Stage 3 min: 3 Total Time in Labor hr: 2 Total Time in Labor min: 1 VAGINAL DELIVERY Episiotomy: None Laceration #1: Perineal Laceration Extension #1: Second Degree Laceration Repair: Yes Laceration Repair Note: second degre perineal laceration repaired in usual fashion Sponge Count Correct: N/A Sharps Count Correct: Yes CSECTION DELIVERY Primary Indication: N/A Secondary Indication: N/A CSection Incision: N/A BABY A INFORMATION Infant Delivery Date/Time: 01/18/2019 05:13 Method of Delivery: Vaginal Born in Route : No : N/A Forceps: N/A Vacuum Extraction: N/A Shoulder Dystocia : No PRESENTATION/POSITION BABY A Presentation: Cephalic Cephalic Presentation: Vertex Vertex Position: Right Occipital Anterior Breech Presentation: N/A PLACENTA INFORMATION BABY A Placenta Delivery Time : 01/18/2019 05:16 Placenta Method of Delivery: Spontaneous Placenta Status: Delivered SCORES BABY A Heart Rate 1 min: >100 bpm Resp Effort 1 min: Good Cry Reflex Irritability 1 min: Cough or Sneeze or Pulls Away Muscle Tone 1 min: Active Motion Color 1 min: Body [place], Extremities Blue Resuscitation Effort 1 min: Tactile Stimulation SCORE 1 MIN: 9 Heart Rate 5 min: >100 bpm Resp Effort 5 min: Good Cry Reflex Irritability 5 min: Cough or Sneeze or Pulls Away Muscle Tone 5 min: Active Motion Color 5 min: Body [place], Extremities Blue Resuscitation Effort 5 min: Tactile Stimulation SCORE 5 MIN: 9 INFORMATION BABY A Gestational Age at Delivery: 39.4 Gestational Status: Full Term- 39- 40.6 Weeks Infant Outcome : Liveborn Infant Condition : Stable Infant Sex: Female IDENTIFICATION BABY A Verification Date/Time: 01/18/2019 06:45 ID Band Number: [id number] Mother's Name Verified: Yes Infant RN Verifying : RN [facility] [place] Additional Verifying Personnel: RN Baldomero WEIGHT/LENGTH BABY A Infant Birthweight (gm): 3990 Infant Weight (lb): 8 Weight (oz): 13 Length (in): 20.00 Length (cm): 50.80 CORD INFORMATION BABY A No. Cord Vessels: 3 Nuchal Cord : tight nuchal around ankle and body cord Cord Blood Taken: Yes-For Storage (Mom's Blood type +) Suction: Mouth ASSESSMENT BABY A Complications: Meconium Physical Findings at Delivery: Within Normal Limits Infant Respirations: Appears Normal Skin to Skin: Yes Eye Physician/ALS Called : No Infant Care By: nursery Transferred To: Remains with Mother BABY B INFORMATION : N/A SIGNATURES Signature: with User ID: [email or web address]
[2019-01-18] MEDS: DOCUSATE SODIUM 100 MG CAPSULE PO SCH ×2 (09:10→17:16)
[2019-01-18] MEDS: SENNOSIDES/DOCUSATE 8.6-50 MG 1 EACH TABLET PO SCH (09:10)
[2019-01-18] MEDS: PRENATAL VITAMIN W DHA CAPSULE PO SCH (09:10)
[2019-01-18] MEDS: FAMOTIDINE 20 MG TABLET PO SCH ×2 (09:11→22:50)
[2019-01-18] MEDS: FERROUS SULFATE 325 MG TABLET PO SCH ×2 (09:11→17:16)
[2019-01-18] MEDS: IBUPROFEN 800 MG TABLET PO SCH ×2 (09:12→17:16)
[2019-01-18] MEDS: CEFAZOLIN 2 GM/D5W RTU 2 GM/50 ML RTUPB IV SCH (12:18)
[2019-01-18] MEDS: CEFAZOLIN SODIUM 2 GM in DEXTROSE 5%-WATER 100 ML IV SCH (18:01)
[2019-01-19] MEDS: CEFAZOLIN SODIUM 2 GM in DEXTROSE 5%-WATER 100 ML IV SCH ×5 (01:34→23:18)
[2019-01-19] MEDS: IBUPROFEN 800 MG TABLET PO SCH ×3 (01:35→17:47)
[2019-01-19 06:54] LABS: HEMATOCRIT 31.4 % (36.0-47.0); HEMOGLOBIN 10.5 g/dL (12.0-15.5); MEAN CORPUSCULAR HEMOGLOBIN 27.4 pg (27.0-33.4); MEAN CORPUSCULAR HGB CONC 33.4 g/dL (32.0-36.0); MEAN CORPUSCULAR VOLUME 82 fl (80-97); PLATELET COUNT 141 10^3/uL (150-450); RED BLOOD COUNT 3.83 10^6/uL (3.72-5.28); RED CELL DISTRIBUTION WIDTH 16.6 % (11.5-14.0); WHITE BLOOD COUNT 8.7 10^3/uL (4.0-10.5)
[2019-01-19] MEDS: DOCUSATE SODIUM 100 MG CAPSULE PO SCH ×2 (09:24→17:47)
[2019-01-19] MEDS: FERROUS SULFATE 325 MG TABLET PO SCH ×2 (09:24→17:47)
[2019-01-19] MEDS: FAMOTIDINE 20 MG TABLET PO SCH ×2 (09:24→21:36)
[2019-01-19] MEDS: SENNOSIDES/DOCUSATE 8.6-50 MG 1 EACH TABLET PO SCH (09:24)
[2019-01-19] MEDS: PRENATAL VITAMIN W DHA CAPSULE PO SCH (09:24)
--- NOTE | 2019-01-19 09:35 | PDOC PROGRESS REPORT ---
Subjective-OB Progress Note for:: 01/19/19 Subjective: Doing well, family at BS, , voiding, eating well, lochia scant Physical Exam (OB) Vital Signs: Temp Pulse Resp BP Pulse Ox 97.8 F 70 18 113/60 99 01/19/19 08:17 01/19/19 08:17 01/19/19 08:17 01/19/19 08:17 01/19/19 08:17 Intake & Output 01/18/19 01/19/19 01/20/19 06:59 06:59 06:59 Intake Total 200 100 Balance 200 100 Weight 102 kg - PIH/Pre-Eclampsia Clonus: Negative Headache: Absent Epigastric Pain: No Visual Changes: No - Lochia Lochia Amount: Scant < 10 ml Lochia Color: Rubra/Red - Abdomen Description: Soft, Round Hernia Present: No Fundal Description: Firm, Midline Fundal Height: u/u - u/2 Objective-Diagnostic Laboratory: 01/19/19 05:57 01/19/19 05:57 WBC 8.7 RBC 3.83 Hgb 10.5 L Hct 31.4 L MCV 82 MCH 27.4 MCHC 33.4 RDW 16.6 H Plt Count 141 L Assessment and Plan(PN) - Assessment and Plan (1) Precipitate labor, delivered, current hospitalization Is this a current diagnosis for this admission?: Yes (2) Spontaneous rupture of membranes Is this a current diagnosis for this admission?: Yes - Time Spent with Patient Time with patient: Less than 15 minutes Medications reviewed and adjusted accordingly: Yes - Disposition Anticipated Discharge: Home Within: within 24 hours
[2019-01-19] MEDS: CEFAZOLIN 2 GM/D5W RTU 2 GM/50 ML RTUPB IV SCH (16:05)
[2019-01-20] MEDS: IBUPROFEN 800 MG TABLET PO SCH ×2 (02:03→09:25)
[2019-01-20] MEDS: CEFAZOLIN SODIUM 2 GM in DEXTROSE 5%-WATER 100 ML IV SCH (07:45)
[2019-01-20 08:21] VITALS: BP 114/62
[2019-01-20] MEDS: FAMOTIDINE 20 MG TABLET PO SCH (09:25)
[2019-01-20] MEDS: PRENATAL VITAMIN W DHA CAPSULE PO SCH (09:25)
[2019-01-20] MEDS: SENNOSIDES/DOCUSATE 8.6-50 MG 1 EACH TABLET PO SCH (09:25)
[2019-01-20] MEDS: FERROUS SULFATE 325 MG TABLET PO SCH (09:25)
[2019-01-20] MEDS: DOCUSATE SODIUM 100 MG CAPSULE PO SCH (09:25)
--- NOTE | 2019-01-20 09:44 | PDOC DISCHARGE SUMMARY ---
Final Diagnosis Discharge Date: 01/20/19 - PP Day #2, doing well, no complaints. B+, Rubella Immune, - Final Diagnosis (1) Normal course Is this a current diagnosis for this admission?: Yes (2) Precipitate labor, delivered, current hospitalization Is this a current diagnosis for this admission?: Yes (3) Spontaneous rupture of membranes Is this a current diagnosis for this admission?: Yes Discharge Data - Discharge Medication Prescriptions: Ibuprofen [Motrin 800 mg Tablet] 800 mg PO Q8 #90 tablet Home Medications: Vit/Iron Fum/Folic AC [ Tablet] 1 tab PO DAILY 07/24/16 Ibuprofen [Motrin 800 mg Tablet] 800 mg PO Q8 #90 tablet 01/20/19 Reason(s) for Admission: Onset of Labor Procedures: Ultrasound Intrapartum Procedure(s): Spontaneous Vaginal Delivery - Diagnosis Test Laboratory: Temp Pulse Resp BP Pulse Ox 98.5 F 87 16 114/62 96 01/20/19 07:55 01/20/19 07:55 01/20/19 07:55 01/20/19 07:55 01/20/19 07:55 01/18/19 01/18/19 01/19/19 04:50 06:14 05:57 RBC 4.38 3.83 Hgb 12.0 10.5 L Hct 35.9 L 31.4 L Urine Opiates Screen NEGATIVE - Discharge information/Instructions Discharge Activity: Activity As Tolerated, No Lifting Over 10 Pounds, Pelvic Rest Discharge Diet: As Tolerated, Regular Disposition: HOME, SELF-CARE Follow up with: [facility] in: 4, Weeks
== END 2019-01-20 14:55 | disposition home or self-care (01) | DRG 807 ==
LOC: LC 04:23 → LR 05:02 → 2S 08:05
PROVIDERS: ADMIT Student in an Organized Health Care Education/Training Program; ATTEND Student in an Organized Health Care Education/Training Program
PROC: 10E0XZZ Delivery of Products of Conception, External Approach (ICD-10-PCS; principal; 2019-01-18)
PROC: 0KQM0ZZ Repair Perineum Muscle, Open Approach (ICD-10-PCS; 2019-01-18)
DX: O62.3 Precipitate labor (principal); Z37.0 Single live birth; O69.2XX0 Labor and delivery complicated by other cord entanglement, with compression, not applicable or unspecified; O77.0 Labor and delivery complicated by meconium in amniotic fluid; O70.1 Second degree perineal laceration during delivery; Z3A.39 39 weeks gestation of pregnancy
CPT/HCPCS: 36415; 80307; 81005; 85025; 85027; 86592; 86850; 86900; 86901; J0690; J2300; J2590; J3490; J7060